=== PATIENT | male | born 1975 | race Caucasian/White ===

== ENCOUNTER 2019-09-23 17:31 | Outpatient (CLI) | payer SELFPAY ==
--- NOTE | ~2019-09-23 | XR_ITS ---
XR wrist RT min 3V 09/23/2019 17:49 Indication: Right wrist pain Procedure: 4 views right wrist Comparison: No prior studies for comparison. Findings: No fracture, subluxation or dislocation. There is mild osteoarthritis of the triscaphe join t. No significant soft tissue abnormality. No radiopaque foreign bodies. Impression: 1: Mild osteoarthritis of the triscaphe joint. Reviewed, dictated and finalized at location A. Impression: 1: Mild osteoarthritis of the triscaphe joint.
== END 2019-09-23 17:32 | disposition home or self-care (01) ==
PROVIDERS: PCP Family Medicine; Visit Provider Physician Assistant
DX: M19.031 Primary osteoarthritis, right wrist (principal)
CPT/HCPCS: 73110

== ENCOUNTER → 2019-10-16 07:41 | Outpatient (CLI) | payer SELFPAY ==
--- NOTE | ~2019-10-16 | MR_ITS ---
EXAMINATION: MR wrist RT wo con DATE: 10/16/2019 08:29 INDICATION: Right wrist pain. TECHNIQUE: Magnetic resonance imaging (MRI) of the wrist was performed without intravenous contrast. Sequences performed include coronal T1-weighted FSE, coronal PD-weighted FS FSE, axial PD-weighted FS FSE, axial PD-weighted FSE, sagittal PD-weighted FSE, and sagittal PD-weighted FS FSE. COMPARISON: Right wrist radiographs 09/23/2019 FINDINGS: Intrinsic ligaments: There is a complete tear of scapholunate ligament with widening of scapholunate joint. Lunotriquetral ligament is intact. Triangular fibrocartilage complex (TFCC): There is a full-thickness tear of triangular fibrocartilage. Extensor wrist: The bony groove for extensor carpi ulnaris tendon is shallow, and the tendon is anteromedially displa jenna indicating a tear of the tendon sheath. There is severe tendinopathy of extensor pollicis brevis and abductor pollicis longus tendons with partial tears. Flexor wrist: The flexor tendons are normal. Median nerve is normal. Guyon's canal: The ulnar nerve is normal. Bones/other: There is mild osteoarthritis of triscaphe joint and first carpometacarpal joint. There is edema in ab ductor pollicis brevis muscle, which may be contusion or mild strain (grade 1). IMPRESSION: 1. Complete tear of scapholunate ligament with scapholunate dissociation. 2. Full-thickness tear of triangular fibrocartilage. 3. Tear of the extensor carpi ulnaris tendon sheath with displacement of the tendon from its bony eduardo ove. 4. Severe tendinopathy of extensor pollicis brevis and abductor pollicis longus tendons with partial tears. 5. Mild osteoarthritis of triscaphe joint and first carpometacarpal joint. Reviewed, dictated and finalized at location A. IMPRESSION: 1. Complete tear of scapholunate ligament with scapholunate dissociation. 2. Full-thickness tear of triangular fibrocartilage. 3. Tear of the extensor carpi ulnaris tendon sheath with displacement of the te ndon from its bony groove. 4. Severe tendinopathy of extensor pollicis brevis and abductor pollicis longus tendons with partial tears. 5. Mild osteoarthritis of triscaphe joint and first carpometacarpal joint.
== END ==
PROVIDERS: Visit Provider Orthopaedic Surgery
DX: M19.031 Primary osteoarthritis, right wrist (principal); S63.591A Other specified sprain of right wrist, initial encounter; X58.XXXA Exposure to other specified factors, initial encounter
CPT/HCPCS: 73221

== ENCOUNTER → 2020-01-16 15:34 | Outpatient (CLI) | payer OTHER, SELFPAY ==
--- NOTE | ~2020-01-16 | XR_ITS ---
EXAMINATION: XR ankle RT min 3V DATE: 01/16/2020 16:33 INDICATION: Right leg pain TECHNIQUE: Anteroposterior, oblique, mortise, and lateral views of the right ankle were obtained. COMPARISON: None. FINDINGS: Alignment is normal. No fracture. Joint spaces are well maintained. No ankle joint effusion. Mild s oft tissue swelling with subcutaneous edema about the distal lower leg and over the lateral malleolus . IMPRESSION: 1. No acute osseous abnormality. Reviewed, dictated and finalized at location B.
--- NOTE | ~2020-01-16 | XR_ITS ---
XR lumbar spine 2-3V 01/16/2020 16:33 Indication: Low back pain Procedure: 3 views lumbar spine Comparison: 12/29/2008 Findings: There are wedge compression deformities T11, T12 and L1, chronic. No acute fracture or trau matic malalignment. There is disc narrowing at L4-5 and L5-S1. There is mild facet hypertrophy at L5- S1. No acute fracture, subluxation or dislocation. No evidence for spondylolisthesis. Impression: 1: Mild lumbar spondylosis. Reviewed, dictated and finalized at location A. Impression: 1: Mild lumbar spondylosis.
--- NOTE | ~2020-01-16 | XR_ITS ---
EXAMINATION: XR knee RT 3V DATE: 01/16/2020 16:33 INDICATION: Right knee pain. TECHNIQUE: 3 views of right knee were obtained. COMPARISON: Right knee radiographs 05/31/2016 FINDINGS: Bone alignment is normal. No fracture. There is mild tricompartmental osteoarthritis. There is a small right knee joint effusion. IMPRESSION: 1. Mild right knee osteoarthritis. 2. Small right knee joint effusion. Reviewed, dictated and finalized at location A.
--- NOTE | ~2020-01-16 | XR_ITS ---
EXAMINATION: XR hip RT min 2V DATE: 01/16/2020 16:32 INDICATION: Right hip pain. TECHNIQUE: 2 views of right hip were obtained. COMPARISON: None. FINDINGS: Bone alignment is normal. No fracture. There is mild right hip osteoarthritis. IMPRESSION: 1. Mild right hip osteoarthritis. Reviewed, dictated and finalized at location A.
== END ==
PROVIDERS: Visit Provider Physician Assistant
DX: M47.896 Other spondylosis, lumbar region (principal); M17.11 Unilateral primary osteoarthritis, right knee; M25.461 Effusion, right knee; M16.11 Unilateral primary osteoarthritis, right hip
CPT/HCPCS: 72100; 73502; 73562; 73610

== ENCOUNTER → 2020-06-03 12:18 | Outpatient (CLI) | payer OTHER, SELFPAY ==
--- NOTE | ~2020-06-03 | XR_ITS ---
EXAMINATION: XR ankle RT min 3V DATE: 06/03/2020 13:05 INDICATION: Right ankle pain TECHNIQUE: Anteroposterior, oblique, mortise, and lateral views of the right ankle were obtained. COMPARISON: 01/16/2020 FINDINGS: Alignment is normal. No fracture. Joint spaces are well maintained. No ankle joint effusion. The so ft tissues are unremarkable. IMPRESSION: 1. No acute osseous abnormality. Reviewed, dictated and finalized at location B.
== END ==
DX: M25.50 Pain in unspecified joint (principal)
CPT/HCPCS: 73610

== ENCOUNTER → 2020-08-08 08:15 | Outpatient (CLI) | payer OTHER, SELFPAY ==
[2020-08-08 19:55] LABS: SARS-CoV-2 RNA PCR Negative
== END ==
PROVIDERS: PCP Family Medicine; Visit Provider Internal Medicine Gastroenterology
DX: Z01.812 Encounter for preprocedural laboratory examination (principal); Z20.822 Contact with and (suspected) exposure to COVID-19
CPT/HCPCS: C9803; U0003; U0005

== ENCOUNTER 2020-08-11 02:29 | Day surgery (SDC) | payer OTHER, SELFPAY ==
[2020-08-04 13:33] VITALS: BMI 44.9
[2020-08-11 07:59] VITALS: BP 135/94; PULSE 88; RESP 22; TEMP 36.4; O2SAT 96
[2020-08-11] MEDS: LACTATED RINGERS 1,000 ML 150 ML IV CONT (08:16)
--- NOTE | 2020-08-11 08:25 | WPDANESEPPF ---
Anes - Initial Pre Proc Eval Procedure: Operation Date: 08/11/20 09:00 Proposed Procedures p Colonoscopy - Fredy Herrera MD Date/Time: 08/11/20 08:25 Surgeon: Fredy Herrera MD Pre Op Diagnosis: rectal bleed Patient Data Age: 45 Gender: M Height: 5 ft 11.5 in Weight: 143.1 kg Last Vital Signs Temp 97.5 F L 08/11/20 07:59 Pulse 88 08/11/20 07:59 Resp 22 H 08/11/20 07:59 BP 135/94 H 08/11/20 07:59 Pulse Ox 96 08/11/20 07:59 Allergies Allergy/AdvReac Type Severity Reaction Status Date / Time No Known Allergies Allergy Verified 08/11/20 07:58 Home Medications Medication Instructions Recorded Confirmed Type lisinopril 10 mg tablet 10 mg PO DAILY #90 tablet 05/08/20 08/04/20 Rx allopurinol 300 mg tablet 300 mg PO DAILY #90 tablet 06/08/20 08/04/20 Rx colchicine 0.6 mg tablet 0.6 mg PO DAILY #30 tablet 06/08/20 08/04/20 Rx indomethacin 25 mg capsule 25 mg PO TID #30 cap 06/22/20 08/04/20 Rx apremilast 30 mg tablet 30 mg PO BID 07/08/20 08/04/20 History meloxicam 15 mg tablet 15 mg PO DAILY #90 tablet 07/21/20 08/04/20 Rx Patient hx anesthesia problems: none Family hx anesthesia problems: none PMFSH Past Medical History Medical History BMI 40.0-44.9, adult Degenerative arthritis of knee, bilateral Gout, unspecified Surgical History Surgical History H/O knee surgery left knee scope Family History Family History Father Family history of cardiovascular disease Social History Social History Smoking status: Never smoker Alcohol intake: current Alcohol use details: occasional Substance use: never Substance use type: does not use Living arrangements: with friend(s) Additional living arrangements comments: lives with girlfriend Gender identity (if verbalized by the patient): Male Sexual Orientation (if Verbalized by the Patient): Straight or Heterosexual Spiritual care concerns: No Anes - Eval Final PreProcedure Day of Procedure 08/11/20 08:25 Patient weight: morbidly obese Heart: regular rate and rhythm Lungs: clear to auscultation Airway: Mallampati scale class III Neurological: alert and oriented Last oral intake: >/= 8 hours ASA classification: III Emergent: no Anesthetic plan: proceed Anesthesia type and monitoring: general GIVS and standard monitoring Informed Consent: The patient's anesthetic plan and its attendant risks and benefits were discussed with the patient/family/POA. Questions were solicited and answers provided to the satisfaction of the patient/family/POA.
--- NOTE | 2020-08-11 08:27 | WPDGICN ---
Assessment and Plan Assessment and plan (1) Rectal bleeding: Code(s): K62.5 - Hemorrhage of anus and rectum Status: Acute Assessment and Plan: Patient with long history of rectal bleeding that has intensified over recent weeks. This appears to be associated with hard stools. Plan is for FiberCon or Metamucil be taken on a daily basis. A colonoscopy will be performed to evaluate source of blood loss. Further recommendations regarding treatment hemorrhoids except for will be deferred till after endoscopy. GI Consult Note Consult date/time: 08/11/20 08:27 HPI: Laureano Eagle is a 45 year old male Presents for evaluation of rectal bleeding. Patient has had rectal bleeding off and on for several years. This been attributed to hemorrhoids. Over last several weeks has had increasing amount of bright red blood per rectum. States he always has hard stools. He is on weight loss supplement that includes fiber. This is failed to totally soften his stools. His family history is noncontributory patient denies any weight loss. Denies abdominal pain. Review of Systems Review of Systems: All systems reviewed & are unremarkable except as noted in HPI and below PMFSH Past Medical History Medical History BMI 40.0-44.9, adult Degenerative arthritis of knee, bilateral Gout, unspecified Surgical History Surgical History H/O knee surgery left knee scope Family History Family History Father Family history of cardiovascular disease Social History Social History Smoking status: Never smoker Alcohol intake: current Alcohol use details: occasional Substance use: never Substance use type: does not use Living arrangements: with friend(s) Additional living arrangements comments: lives with girlfriend Gender identity (if verbalized by the patient): Male Sexual Orientation (if Verbalized by the Patient): Straight or Heterosexual Spiritual care concerns: No Meds Home Medications and Allergies Home Medications Medication Instructions Recorded Confirmed Type lisinopril 10 mg tablet 10 mg PO DAILY #90 tablet 05/08/20 08/04/20 Rx allopurinol 300 mg tablet 300 mg PO DAILY #90 tablet 06/08/20 08/04/20 Rx colchicine 0.6 mg tablet 0.6 mg PO DAILY #30 tablet 06/08/20 08/04/20 Rx indomethacin 25 mg capsule 25 mg PO TID #30 cap 06/22/20 08/04/20 Rx apremilast 30 mg tablet 30 mg PO BID 07/08/20 08/04/20 History meloxicam 15 mg tablet 15 mg PO DAILY #90 tablet 07/21/20 08/04/20 Rx Allergies Allergy/AdvReac Type Severity Reaction Status Date / Time No Known Allergies Allergy Verified 08/11/20 07:58 Vital Signs Vital Signs - 24 hr 08/11/20 07:59 Temperature 97.5 F L Pulse Rate 88 Respiratory Rate 22 H Blood Pressure 135/94 H Pulse Oximetry 96 Exam Narrative: Exam Narrative: Physical exam reveals patient be alert. Vital signs stable. HEENT exam is unremarkable. Patient is anicteric. Lungs are clear to auscultation and percussion. Heart is without murmur or extra sounds. Abdominal exam bowel sounds are present soft nontender with no organomegaly. Digital external rectal exam is normal.
[2020-08-11 08:58] VITALS: BP 135/94; PULSE 88; RESP 22; O2SAT 96
[2020-08-11 09:08] VITALS: BP 128/78; PULSE 84; RESP 15; O2SAT 96
[2020-08-11 09:18] VITALS: BP 132/72; PULSE 85; RESP 16; O2SAT 96
== END 2020-08-11 09:30 | disposition home or self-care (01) ==
PROVIDERS: PCP Family Medicine; Visit Provider Internal Medicine Gastroenterology
PROC: 0DJD8ZZ Inspection of Lower Intestinal Tract, Via Natural or Artificial Opening Endoscopic (ICD-10-PCS; CPT 45378; principal; 2020-08-11 09:00)
DX: K62.5 Hemorrhage of anus and rectum (principal); D12.5 Benign neoplasm of sigmoid colon; K64.8 Other hemorrhoids; M17.0 Bilateral primary osteoarthritis of knee; M10.9 Gout, unspecified
CPT/HCPCS: 45385; 88305; C9803; J2001; J2704; J7120; U0003; U0005

== ENCOUNTER 2021-10-12 10:59 | Outpatient (CLI) | payer OTHER, SELFPAY ==
[2021-10-12 18:38] LABS: Basophils Absolute Auto 0.1 K/mm3 (0.0-0.1); Basophils Percent Auto 1.1 % (0.2-1.2); Eosinophils Absolute Auto 0.2 K/mm3 (0-0.3); Eosinophils Percent Auto 2.3 % (0-4.4); Hematocrit 42.8 % (42.0-52.0); Hemoglobin 14.2 g/dL (14.0-18.0); Immature Granulocyte Absolute 0.02 K/mm3 (0.00-0.031); Immature Granulocyte Percent A 0.3 % (0-0.5); Lymphocytes Absolute Auto 2.67 K/mm3 (0.9-3.2); Lymphocytes Percent Auto 41.2 % (18.3-44.2); Mean Corpuscular HGB Conc 33.2 g/dl (32-36); Mean Corpuscular Hemoglobin 30.1 pg (26-34); Mean Corpuscular Volume 90.9 fl (80-100); Mean Platelet Volume 12.8 fl (7.4-10.4); Monocytes Absolute Auto 0.5 K/mm3 (0.1-0.6); Monocytes Percent Auto 7.1 % (2.6-8.5); Neutrophils Absolute Auto 3.1 K/mm3 (1.3-6.7); Platelet Count Result 189 k/mm3 (150-375); Red Blood Count 4.71 M/mm3 (4.6-6.20); Red Cell Distribution Width 13.4 % (11.5-14.5); White Blood Count 6.5 K/mm3 (4.5-10.0)
[2021-10-12 18:55] LABS: Alanine Aminotransferase 74 U/L (6-50); Albumin Level 4.1 g/dL (3.5-5.1); Alkaline Phosphatase 57 U/L (38-126); Anion Gap 5 mmol/L (8-16); Aspartate Amino Transferase 48 U/L (17-59); Bilirubin,Total 0.9 mg/dL (0.2-1.3); Blood Urea Nitrogen 17 mg/dL (9-20); Carbon Dioxide 29 mmol/L (22-30); Chloride 106 mmol/L (98-107); Cholesterol 176 mg/dL (0-200); Estimated Glomerular Filt Rate 59; Glucose 115 mg/dL (65-110); HDL Direct 35 mg/dL; Potassium 4.5 mmol/L (3.4-5.0); Sodium 140 mmol/L (137-145); Triglycerides 123 mg/dL (<150); Uric Acid 6.3 mg/dL (3.5-8.5)
[2021-10-12 19:14] LABS: LDL Cholesterol Direct 104 mg/dL
[2021-10-12 19:22] LABS: Thyroid Stimulating Hormone 0.467 uIU/mL (0.465-4.680)
[2021-10-12 20:23] LABS: Hemoglobin A1C 5.3 % (<5.7)
== END 2021-10-12 11:00 | disposition home or self-care (01) ==
LOC: ANHGOSHLAB 11:00
PROVIDERS: PCP Family Medicine; Visit Provider Physician Assistant
DX: M10.9 Gout, unspecified (principal); I10 Essential (primary) hypertension; R73.03 Prediabetes; Z51.81 Encounter for therapeutic drug level monitoring; Z79.899 Other long term (current) drug therapy
CPT/HCPCS: 36415; 80053; 80061; 83036; 84443; 84550; 85025

== ENCOUNTER 2021-10-21 11:47 | Outpatient (CLI) | payer OTHER, SELFPAY ==
[2021-10-21 19:07] LABS: Basophils Absolute Auto 0.1 K/mm3 (0.0-0.1); Basophils Percent Auto 1.1 % (0.2-1.2); Eosinophils Absolute Auto 0.2 K/mm3 (0-0.3); Eosinophils Percent Auto 3.2 % (0-4.4); Hematocrit 42.7 % (42.0-52.0); Hemoglobin 14.7 g/dL (14.0-18.0); Immature Granulocyte Absolute 0.02 K/mm3 (0.00-0.031); Immature Granulocyte Percent A 0.3 % (0-0.5); Lymphocytes Absolute Auto 2.46 K/mm3 (0.9-3.2); Lymphocytes Percent Auto 37.3 % (18.3-44.2); Mean Corpuscular HGB Conc 34.4 g/dl (32-36); Mean Corpuscular Hemoglobin 30.8 pg (26-34); Mean Corpuscular Volume 89.5 fl (80-100); Mean Platelet Volume 12.6 fl (7.4-10.4); Monocytes Absolute Auto 0.4 K/mm3 (0.1-0.6); Monocytes Percent Auto 6.5 % (2.6-8.5); Neutrophils Absolute Auto 3.4 K/mm3 (1.3-6.7); Neutrophils Percent Auto 51.6 % (45.5-73.1); Platelet Count Result 202 k/mm3 (150-375); Red Blood Count 4.77 M/mm3 (4.6-6.20); Red Cell Distribution Width 12.9 % (11.5-14.5); White Blood Count 6.6 K/mm3 (4.5-10.0)
[2021-10-21 19:48] LABS: Hemoglobin A1C 5.3 % (<5.7)
[2021-10-21 20:09] LABS: Hepatitis B Surface Antigen Negative (Negative)
[2021-10-21 20:14] LABS: Alanine Aminotransferase 81 U/L (6-50); Albumin Level 4.1 g/dL (3.5-5.1); Alkaline Phosphatase 54 U/L (38-126); Anion Gap 7 mmol/L (8-16); Aspartate Amino Transferase 39 U/L (17-59); Bilirubin,Total 1.1 mg/dL (0.2-1.3); Blood Urea Nitrogen 16 mg/dL (9-20); Calcium 9.2 mg/dL (8.4-10.2); Carbon Dioxide 28 mmol/L (22-30); Chloride 103 mmol/L (98-107); Cholesterol 167 mg/dL (0-200); Estimated Glomerular Filt Rate 59; Glucose 98 mg/dL (65-110); HDL Direct 37 mg/dL; Potassium 4.4 mmol/L (3.4-5.0); Sodium 138 mmol/L (137-145); Triglycerides 124 mg/dL (<150); Uric Acid 6.7 mg/dL (3.5-8.5)
[2021-10-21 20:15] LABS: HAV RESULT Negative (Negative); Hepatitis B Core IgM Result Negative (Negative)
[2021-10-21 20:25] LABS: LDL Cholesterol Direct 106 mg/dL
[2021-10-21 20:26] LABS: Hepatitis C Virus Antibody Negative (Negative)
== END 2021-10-21 11:48 | disposition home or self-care (01) ==
LOC: ANHGOSHLAB 11:48
PROVIDERS: PCP Family Medicine; Visit Provider Family Medicine
DX: R73.03 Prediabetes (principal); M10.9 Gout, unspecified; I10 Essential (primary) hypertension; Z51.81 Encounter for therapeutic drug level monitoring; Z79.899 Other long term (current) drug therapy; R74.8 Abnormal levels of other serum enzymes
CPT/HCPCS: 36415; 80053; 80061; 80074; 83036; 84443; 84550; 85025

== ENCOUNTER → 2021-11-01 09:53 | Outpatient (CLI) | payer OTHER, SELFPAY ==
--- NOTE | ~2021-11-01 | US_ITS ---
US abdomen complete EXAMINATION: US Abdomen Complete INDICATION: Abnormal liver enzymes PROCEDURE: Realtime High Resolution abdomen ultrasound. COMPARISON: No prior studies for comparison FINDINGS: Gallbladder contains gallstones. No gallbladder wall thickening or pericholecystic fluid. Common bile duct measures 4 mm. Liver echotexture is increased, consistent with fatty infiltration.. Pancreas within normal limits. Pancreatic tail is obscured by bowel gas. Spleen is enlarged measuring 13.9 cm. Renal echotexture i s within normal limits bilaterally without hydronephrosis, contour deforming mass or renal stone. Rig ht kidney measures 10.3 cm. Left kidney measures 10.6 cm. Visualized aspects of the aorta and IVC are within normal limits. Portal vein is patent. No sonograph ic Jefferson's sign indicated by the technologist. IMPRESSION: 1: Cholelithiasis. 2: Hepatic steatosis. 3: Splenomegaly. Reviewed, dictated and finalized at location B.
== END ==
PROVIDERS: PCP Family Medicine; Visit Provider Physician Assistant
DX: R74.8 Abnormal levels of other serum enzymes (principal); K80.20 Calculus of gallbladder without cholecystitis without obstruction; K76.0 Fatty (change of) liver, not elsewhere classified; R16.1 Splenomegaly, not elsewhere classified
CPT/HCPCS: 76700

== ENCOUNTER → 2024-03-18 06:52 | Outpatient (CLI) | payer OTHER, SELFPAY ==
--- NOTE | 2024-04-08 16:13 | WPDSLEEPSTUD ---
Sleep Study Date of Study: 03/18/24 Ordering Provider: Javier Lepe MD Interpreting Physician: Lyndsay Maria MD Sleep Study Type: Polysomnogram Height: 1.8 m Weight: 151.046 kg Body Mass Index: 46.4 Neck Circumference (inches): 19.5 [place]: 6 Reason for Sleep Study Known obstructive sleep apnea, * 03/07/2018 split night study; severe EDWAR, AHI 101.4, heavy snoring, O2 meena 77%, treated with BiPAP He was set up with BiPAP on May 14, 2018. Sleep History Laureano Eagle is a 48 year-old man with obstructive sleep apnea diagnosed in 2018, pressure was BiPAP . This pressure is no longer feeling effective for him. He returns now for a split night study. Was not able to qualify for a CPAP study full night because he has not been compliant enough or if he has, we were not able to document his compliance to have a full night titration. This study was conducted as a split night study. He wakes up 3 or 4 times during the night. After some awakenings he cannot return to sleep. Five years ago he occasionally awaken from sleep feeling short of breath but using PAP he does not awaken feeling short of breath. He does not awaken at night with heartburn, belching or coughing. He never snores at night and never awakens others by snoring. He occasionally has difficulty sleeping with a cold. He occasionally wakes up gasping for breath at night. He rarely has breathing problems at night observed by others. He occasionally sweats excessively at night. He does not notice his heart pounding or beating irregularly at night. He rarely falls asleep during the day, never involuntarily, never while driving. He does not have loss of muscle tone with strong emotion. He does not have daytime difficulties due to excessive sleepiness. Does not feel paralyzed on waking or falling asleep. He occasionally has vivid dreamlike scenes upon awakening or falling asleep. He does not feel afraid to go to sleep. He rarely has nightmares. Frequently remembers his dreams. He occasionally has racing thoughts. He does not have sadness or depression, rarely has anxiety. He occasionally notices parts of his body jerking. He does not kick at night, does not have crawling or aching feelings in his legs, does not have any kind of leg pain at night or does he have morning jaw pain. He rarely grinds his teeth at night. He does not have pain bothering him in the day. He is not awakened by pain at night. He occasionally wakes up feeling stiff in the morning. He does not wake up with sore achy muscles. He rarely wakes up with pain in the neck and spine. He has headaches and memory problems. Normal bedtime is 12 midnight, falling asleep within 20 minutes but sometimes taking up to an hour. He typically awakens 3-4 times during the night, checks his telephone, returns to sleep within 20 minutes. His normal wake time is 7:00 a.m.. On weekends, bedtime is still midnight but his wake time is 10:00 a.m.. He estimates getting between 6 and 8 hours of sleep at night. He does not generally take naps in the afternoon or evening. A short nap is not refreshing. He is usually drowsy for 1 hour after waking. Feels better in the evening compared to other times of day. Habits: Tobacco: Never smoker Caffeine: None Alcohol: not daily; about twice a month he has a shot of [employer] Recreational substances: None PMFSH Past Medical History Medical History (Updated 04/08/24 @ 18:42 by Lyndsay Maria MD) Psoriasis Psoriatic arthritis Essential (primary) hypertension Obstructive sleep apnea Right knee pain Degenerative arthritis of knee, bilateral BMI 40.0-44.9, adult Gout, unspecified Surgical History Surgical History H/O knee surgery left knee scope Family History Family History Father Family history of cardiovascular disease Social History Social History Smoking status: Never smoker Alcohol intake: current Alcohol use details: occasional Substance use: never Substance use type: does not use Lack of Transportation: No Lack of Food: Never True Current Housing: I Have Housing Concerned About Future Housing: No Difficulty Paying Gas/Electric Bills: No Difficulty Paying for Meds: YES Currently Unemployed: YES Education: High School Diploma/GED Difficulty w/ Childcare or Family Care: No Living arrangements: with friend(s) Additional living arrangements comments: lives with girlfriend Gender identity (if verbalized by the patient): Male Sexual Orientation (if Verbalized by the Patient): Straight or Heterosexual Spiritual care concerns: No Medications Home Medications ?Medication ?Instructions ?Recorded ?Confirmed ?Type clobetasol 0.05 % topical ointment topical 06/07/23 12/18/23 History apremilast 20 mg tablet (Otezla) mg PO 12/18/23 12/18/23 History tirzepatide 2.5 mg/0.5 mL 2.5 mg (0.5 mL) subcut WEEKLY #6 mL 12/18/23 12/18/23 Rx subcutaneous pen injector (Mounjaro) allopurinol 300 mg tablet See Rx Instructions .Route 01/15/24 Rx .COMPLEX #90 tabs meloxicam 15 mg tablet 15 mg PO DAILY #90 tabs 01/15/24 Rx lisinopril 10 mg tablet See Rx Instructions .Route 03/18/24 Rx .COMPLEX #90 tabs Sleep Procedure A full night polysomnogram using the magnetic[employer]io multi-channel system recorded the standard physiologic parameters including EEG, EOG, submentalis EMG, anterior tibialis EMG, EKG, body position, nasal and oral airflow using nasal pressure sensor and thermistor. Respiratory parameters of chest and abdominal movements were recorded with Respiratory Inductance Plethysmography belts. Oxygen saturation was recorded by pulse oximetry. Video monitoring was also performed. Sleep stages, periodic limb movements, and EEG arousals were scored in 30 second epochs according to the criteria of the AASM Scoring Manual. The Apnea-Hypopnea Index was calculated using CMS guidelines for definition of hypopnea while scoring respiratory events. This was ordered as a split night study however he did not meet the criteria early enough in the night, after the 1st 2 hours of accumulated sleep so this was conducted as a full night basic nocturnal polysomnogram. Sleep Architecture The total recording time was 355.8 minutes. The total sleep time was 136.5 minutes. Sleep latency was 35.0 minutes. REM latency was - minutes. Sleep efficiency was 38.4%. The patient had 57 awakenings for an awakening index of 25.1. Wake after sleep onset time was 184.5 minutes. The patient spent 82.5 minutes, 60.4% of total sleep time in Stage N1. The patient spent 54.0 minutes, 39.6% in Stage N2. The patient spent no time in Stage N3 or Stage REM sleep. His sleep was fracures, several long episodes of wake during the night, frequent shifts between wake, Stage N1 and Stage N2, with no deep sleep or Stage REM. Respiratory Analysis The patient had 21 hypopneas, 175 obstructive apneas, no mixed apneas and 2 central apneas for an overall Apnea Hypopnea Index of 86.6. The REM Apnea Hypopnea Index was 0 because he had no REM. The NREM Apnea Hypopnea Index was 86.6. The patient had a Central Apnea Hypopnea Index of 0.9. There were no Respiratory Effort Related Arousals. The Respiratory Disturbance Index is 90.1 events per hour. There was no evidence of Alireza-Tinsley Respirations. Arousals There were 226 total arousals for an arousal index of 99.3. There were 89 spontaneous arousals for an index of 39.1. There were 134 arousals due to respiratory events for an index of 58.9. There were no arousals due to periodic limb movements. There were 3 arousals due to isolated limb movements for an index of 1.3. Periodic Limb Movements The patient had 3 isolated limb movements with an index of 1.3. The patient had no periodic limb movements. Patient had a total of 3 limb movements with a total limb movement index of 1.3. Oximetry Data The patient had an average oxygen saturation of 94.3% in sleep with a minimum oxygen saturation of 85% and a maximum oxygen saturation of 100%. The patient had 58 oxygen desaturations that were 4% or greater resulting in an Oxygen Desaturation Index of 25.5. The patient spent 6.2 minutes, 1.8% of total sleep time with an oxygen saturation below 88%. Snoring Profile Snoring was moderate throughout the night. Cardiac Profile EKG showed normal sinus rhythm with an average pulse rate of 69.8 beats per minute, minimum pulse rate 50 a maximum pulse rate 95 beats per minute. No arrhythmias. EEG Profile Unremarkable, no evidence of seizures. Assessment and Plan Assessment and Plan (1) Obstructive sleep apnea: Code(s): G47.33 - Obstructive sleep apnea (adult) (pediatric) Status: Acute Assessment and Plan: This full night basic nocturnal polysomnogram on 03/18/2024 shows extremely severe obstructive sleep apnea, the apnea-hypopnea index is 86.6 with moderate snoring and desaturation 85%. The patient had limited sleep, the sleep efficiency was extremely low 38.4% indicating that most of the night was spent awake. He did not meet criteria early enough in the night to start the titration of PAP therapy. For this reason the patient absolutely needs return to the sleep lab for PAP titration. He was previously on BiPAP in 2018. He is not a candidate for auto PAP. The patient had multiple episodes of waking throughout the night and spent only about 38% of the night of sleep. This suggests that he naps on the day of the study. It is essential for the patient to not nap on the day of the CPAP titration. Even with a sleep aid, he will not be able to have a full night appropriate titration if he comes to the sleep lab without 12 hours of wakefulness preceding the testing. I recommend that he is prescribed an effective sleep aid to get to sleep and stay asleep during the titration. Ideally, we akiko ask him not to use his regular PAP machine for 2-3 nights prior to testing in order to identify the optimal pressure. If he uses PAP leading up to the titration, he may end up with an under-titration. He will be able to start his titration with a pressure of CPAP 10 cm as he is on high pressures at home. When he presents for the CPAP / BiPAP titration, he should not nap on the day of the study, he should have a sleep aid such as solpidem 5 mg to 10 mg or Lunesta 2 mg to 3 mg available to take when lights are turned out, not at home. BMI is 46. Weight management is advised. Clinical data suggests that weight loss of 10% can reduce the severity of respiratory events and snoring and improve AHI by as much as 25%. Data The data obtained during this sleep study is adequate for interpretation. Certification This sleep study has been reviewed by a board certified sleep medicine physician.
[2024-04-08 16:16] VITALS: BMI 46.4
== END ==
LOC: ANHCSM 04-12 06:52
PROVIDERS: PCP Family Medicine; Visit Provider Family Medicine
DX: G47.33 Obstructive sleep apnea (adult) (pediatric) (principal); Z99.89 Dependence on other enabling machines and devices
CPT/HCPCS: 95810

== ENCOUNTER 2024-08-28 10:12 | Outpatient (CLI) | payer OTHER, SELFPAY ==
[2024-09-23 16:03] VITALS: BMI 42.7
--- NOTE | 2024-09-23 16:03 | P.SLEEP_ITS ---
Sleep Study Date of Study: 08/28/24 Ordering Provider: Javier Lepe MD Interpreting Physician: Mary Lou Woods DO Sleep Study Type: CPAP Titration Height: 1.83 m Weight: 142.882 kg Body Mass Index: 42.7 Neck Circumference (inches): 19.25 [place]: 6 Reason for Sleep Study Polysomnogram on 03/18/2024 showed an AHI of 86.6 with desaturation down to 85%. Sleep History Laureano Eagle is a 49 year-old man with obstructive sleep apnea diagnosed in 2018, pressure was BiPAP . This pressure is no longer feeling effective for him. He returns now for a split night study. Was not able to qualify for a CPAP study full night because he has not been compliant enough or if he has, we were not able to document his compliance to have a full night titration. This study was conducted as a split night study. He wakes up 3 or 4 times during the night. After some awakenings he cannot return to sleep. Five years ago he occasionally awaken from sleep feeling short of breath but using PAP he does not awaken feeling short of breath. He does not awaken at night with heartburn, belching or coughing. He never snores at night and never awakens others by snoring. He occasionally has difficulty sleeping with a cold. He occasionally wakes up gasping for breath at night. He rarely has breathing problems at night observed by others. He occasionally sweats excessively at night. He does not notice his heart pounding or beating irregularly at night. He rarely falls asleep during the day, never involuntarily, never while driving. He does not have loss of muscle tone with strong emotion. He does not have daytime difficulties due to excessive sleepiness. Does not feel paralyzed on waking or falling asleep. He occasionally has vivid dreamlike scenes upon awakening or falling asleep. He does not feel afraid to go to sleep. He rarely has nightmares. Frequently remembers his dreams. He occasionally has racing thoughts. He does not have sadness or depression, rarely has anxiety. He occasionally notices parts of his body jerking. He does not kick at night, does not have crawling or aching feelings in his legs, does not have any kind of leg pain at night or does he have morning jaw pain. He rarely grinds his teeth at night. He does not have pain bothering him in the day. He is not awakened by pain at night. He occasionally wakes up feeling stiff in the morning. He does not wake up with sore achy muscles. He rarely wakes up with pain in the neck and spine. He has headaches and memory problems. Normal bedtime is 12 midnight, falling asleep within 20 minutes but sometimes t aking up to an hour. He typically awakens 3-4 times during the night, checks his telephone, returns to sleep within 20 minutes. His normal wake time is 7:00 a.m.. On weekends, bedtime is still midnight but his wake time is 10:00 a.m.. He estimates getting between 6 and 8 hours of sleep at night. He does not generally take naps in the afternoon or evening. A short nap is not refreshing. He is usually drowsy for 1 hour after waking. Feels better in the evening compared to other times of day. Habits: Tobacco: Never smoker Caffeine: None Alcohol: not daily; about twice a month he has a shot of [employer] Recreational substances: None PMFSH Past Medical History Medical History Psoriasis Psoriatic arthritis Essential (primary) hypertension Obstructive sleep apnea Right knee pain Degenerative arthritis of knee, bilateral BMI 40.0-44.9, adult Gout, unspecified Surgical History Surgical History H/O knee surgery left knee scope Family History Family History Father Family history of cardiovascular disease Social History Social History Smoking status: Never smoker Alcohol intake: current Alcohol use details: occasional Substance use: never Substance use type: does not use Lack of Transportation: No Lack of Food: Never True Current Housing: I Have Housing Concerned About Future Housing: No Difficulty Paying Gas/Electric Bills: No Difficulty Paying for Meds: YES Currently Unemployed: YES Education: High School Diploma/GED Difficulty w/ Childcare or Family Care: No Living arrangements: with friend(s) Additional living arrangements comments: lives with girlfriend Gender identity (if verbalized by the patient): Male Sexual Orientation (if Verbalized by the Patient): Straight or Heterosexual Spiritual care concerns: No Medications Home Medications ?Medication ?Instructions ?Recorded ?Confirmed ?Type clobetasol 0.05 % topical ointment topical 06/07/23 06/24/24 History lisinopril 10 mg tablet See Rx Instructions .Route 03/18/24 06/24/24 Rx .COMPLEX #90 tabs zolpidem 10 mg tablet 10 mg PO QHS PRN sleep study #1 04/10/24 06/24/24 Rx tablet tirzepatide (weight loss) 5 mg/0.5 5 mg (0.5 mL) subcut WEEKLY #6 mL 06/24/24 06/24/24 Rx mL subcutaneous pen injector (Zepbound) allopurinol 300 mg tablet See Rx Instructions .Route 07/22/24 Rx .COMPLEX #90 tabs meloxicam 15 mg tablet 15 mg PO DAILY #90 tabs 07/22/24 Rx Sleep Procedure A full night CPAP Titration using the [employer] multi-channel system recorded the standard physiologic parameters including EEG, EOG, submentalis EMG, anterior tibialis EMG, EKG, body position, nasal and oral airflow using nasal pressure sensor and thermistor.? Respiratory parameters of chest and abdominal movements were recorded with Respiratory Inductance Plethysmography belts. Oxygen saturation was recorded by pulse oximetry. Video monitoring was also performed. Sleep stages, periodic limb movements, and EEG arousals were scored in 30 second epochs according to the criteria of the AASM Scoring Manual. The Apnea-Hypopnea Index was calculated using CMS guidelines for definition of hypopnea with 4% O2 desaturations while scoring respiratory events. Sleep Architecture The total recording time was 525.9 minutes.? The total sleep time was 470.0 minutes. Sleep latency was 7.1 minutes. REM latency was 124.0 minutes. Sleep efficiency was 89.4%. The patient had 43 awakenings for an awakening index of 5.5. Wake after Sleep Onset time was 48.5 minutes. The patient spent 50.5 minutes, 10.7% of total sleep time in Stage N1. The patient spent 339.5 minutes, 72.2% in Stage N2. The patient spent 0.0 minutes, 0.0% in Stage N3. The patient spent 80.0 minutes, 17.0% in Stage REM. Respiratory Analysis The patient had 71 hypopneas for an overall Apnea Hypopnea Index of 9.1 events per hour. The REM Apnea Hypopnea Index was 0. The NREM Apnea Hypopnea Index was 10.9. The patient had a Central Apnea Hypopnea Index of 0. There was no evidence of Alireza-Tinsley Respirations. The patient was started on CPAP 5 cm H2O and titrated to CPAP 15 cm H2O due to hypopneas. The patient was able to fall asleep starting on CPAP 5 cm H2O. The paul duncan was able to achieve REM sleep starting on CPAP 11 cm H2O. The patient had a residual AHI less than 5 with both NREM and REM sleep in the supine position on the final two pressure settings. On CPAP 13 cm H2O, the patient spent 253 minutes in NREM and 51.5 minutes in REM sleep with 1 hypopnea, resulting in an AHI of 0.2. On CPAP 15 cm H2O, the patient spent 17 minutes in NREM and 19.5 minutes in REM sleep with no respiratory events, resulting in an AHI of 0. The patient had a sleep efficiency of 93.3% on 13 cm H2O and 76.8% on 15 cm H2O. Arousals There were 141 total arousals for an arousal index of 18.0. There were 80 spontaneous arousals for an index of 10.2. ?There were 39 arousals due to respiratory events for an index of 5.0. There were 11 arousals due to periodic limb movements for an index of 1.4.? There were 12 arousals due to isolated limb movements for an index of 1.5. Periodic Limb Movements The patient had 41 isolated limb movements with an index of 5.2. The patient had 145 periodic limb movements with index of 18.5, which is elevated (normal < 15). Patient had a total of 186 limb movements with a total limb movement index of 23.7. Oximetry Data The patient had an average oxygen saturation of 94.0% in sleep with a minimum oxygen saturation of 83.0% and a maximum oxygen saturation of 98.0%. The patient had 76 oxygen desaturations that were 4% or greater resulting in an Oxygen Desaturation Index of 9.7.? The patient spent 2.8 minutes, 0.5% of total sleep time with an oxygen saturation below 88%. Snoring Profile Mild snoring was present intermittently in the beginning of the study. The snoring resolved once the patient was titrated to 13 cm H2O. Cardiac Profile The EKG showed normal sinus rhythm. No arrhythmias or premature beats were seen. The patient had an average pulse rate of 64.8 bpm with a minimum pulse rate of 49.0 bpm and a maximum pulse rate of 90.0 bpm. ? EEG Profile No signs of seizure activity seen. Assessment and Plan Assessment and Plan (1) Obstructive sleep apnea: Code(s): G47.33 - Obstructive sleep apnea (adult) (pediatric) Status: Acute Assessment and Plan: The patient was started on CPAP 5 cm H2O and titrated to CPAP 15 cm H2O due to hypopneas. We were able to find a pressure setting that resolved his sleep apnea. I recommend that the patient be prescribed CPAP 13 cm H2O, size large Resmed N30i AirTouch mask, CPAP filters/tubing and heated humidity. This should be used with all episodes of sleep.? Compliance should be reviewed within 31-90 days of starting therapy for usage greater than 4 hours per night greater than 70% of the nights. The patient should be asked about symptoms such as?excessive daytime sleepiness, quality of sleep, decreased nocturia, increased?mental functioning such as memory, mood, and concentration. While the patient had an excessive amount of periodic limb movements, the frequency drastically decreased once he was titrated to the optimal pressure setting. I recommend asking the patient about periodic limb movements at his first CPAP compliance visit. Data The data obtained during this sleep study is adequate for interpretation. Certification This sleep study has been reviewed by a board certified sleep medicine physician.
== END 2024-08-29 06:27 | disposition home or self-care (01) ==
LOC: ANHCSM 10:16
PROVIDERS: PCP Family Medicine; Visit Provider Family Medicine
DX: G47.33 Obstructive sleep apnea (adult) (pediatric) (principal)
CPT/HCPCS: 95811

== ENCOUNTER 2024-12-01 21:36 | Emergency (ER) | payer OTHER, SELFPAY ==
--- OUTSIDE RECORDS SUMMARY | 2021-12-15 04:22 | XMS_ITS | Continuity of Care Document ---
Author Organization [employer] Address [address] [facility] [address] [place] [id number] Phone Care Team Providers Care Evp General Counsel Name Role Phone Mervin Martin Unavailable Unavailable Procedures Procedure Date Wrist Widget Orthotic Mgmt and Training Therapeutic Activities Progress Note Therapeutic Activities Therapeutic Exercise Manual Therapy Hot or Cold Pack Therapeutic Activities Hot or Cold Pack Manual Therapy Therapeutic Exercise Manual Therapy Therapeutic Exercise Therapeutic Activities Hot or Cold Pack Therapeutic Activities Manual Therapy Therapeutic Activities Therapeutic Exercise Manual Therapy Hot or Cold Pack Therapeutic Activities Hot or Cold Pack Manual Therapy Therapeutic Exercise Therapeutic Activities Neuromuscular Re-Ed Manual Therapy Hot or Cold Pack Hot or Cold Pack Manual Therapy Neuromuscular Re-Ed Therapeutic Activities Manual Therapy Therapeutic Exercise Neuromuscular Re-Ed Hot or Cold Pack Ultrasound Therapeutic Activities Hot or Cold Pack Manual Therapy Therapeutic Exercise Neuromuscular Re-Ed Ultrasound Therapeutic Activities Neuromuscular Re-Ed Therapeutic Exercise Manual Therapy Hot or Cold Pack Therapeutic Activities Neuromuscular Re-Ed Therapeutic Exercise Manual Therapy Hot or Cold Pack Ultrasound Neuromuscular Re-Ed Therapeutic Activities Hot or Cold Pack Manual Therapy Therapeutic Exercise Electrical Stimulation Manual Therapy Therapeutic Exercise Neuromuscular Re-Ed Therapeutic Activities Hot or Cold Pack Electrical Stimulation Therapeutic Activities Neuromuscular Re-Ed Therapeutic Exercise Manual Therapy Hot or Cold Pack Electrical Stimulation Therapeutic Activities Neuromuscular Re-Ed Therapeutic Exercise Manual Therapy Hot or Cold Pack Therapeutic Activities Neuromuscular Re-Ed Therapeutic Exercise Hot or Cold Pack Manual Therapy Electrical Stimulation Therapeutic Activities Ultrasound Hot or Cold Pack Manual Therapy Neuromuscular Re-Ed Neuromuscular Re-Ed Therapeutic Exercise Manual Therapy Hot or Cold Pack Ultrasound OT Evaluation Low Complexity Therapeutic Exercise Manual Therapy Hot or Cold Pack Neuromuscular Re-Ed Therapeutic Activities Hot or Cold Pack Manual Therapy Therapeutic Exercise Therapeutic Activities Neuromuscular Re-Ed Hot or Cold Pack Manual Therapy Therapeutic Activities Neuromuscular Re-Ed Therapeutic Exercise Manual Therapy Hot or Cold Pack Progress Note Therapeutic Activities Therapeutic Exercise Manual Therapy Hot or Cold Pack Therapeutic Activities Neuromuscular Re-Ed Therapeutic Exercise Hot or Cold Pack Manual Therapy Progress Note Neuromuscular Re-Ed Therapeutic Activities Hot or Cold Pack Manual Therapy Therapeutic Exercise Therapeutic Exercise Neuromuscular Re-Ed Therapeutic Activities Electrical Stimulation Hot or Cold Pack Manual Therapy Hot or Cold Pack Manual Therapy Therapeutic Exercise Neuromuscular Re-Ed Therapeutic Activities Therapeutic Activities Hot or Cold Pack Manual Therapy Therapeutic Exercise Neuromuscular Re-Ed Therapeutic Activities Neuromuscular Re-Ed Therapeutic Exercise Manual Therapy Hot or Cold Pack Electrical Stimulation Therapeutic Activities Neuromuscular Re-Ed Hot or Cold Pack Manual Therapy Therapeutic Exercise Manual Therapy Therapeutic Exercise Therapeutic Activities Electrical Stimulation Hot or Cold Pack Hot or Cold Pack Manual Therapy Therapeutic Exercise Therapeutic Activities Neuromuscular Re-Ed Therapeutic Activities Progress Note Hot or Cold Pack Therapeutic Exercise Therapeutic Activities Hot or Cold Pack Therapeutic Exercise Neuromuscular Re-Ed Therapeutic Activities Electrical Stimulation Hot or Cold Pack Therapeutic Exercise Neuromuscular Re-Ed Therapeutic Activities Electrical Stimulation Hot or Cold Pack Manual Therapy Therapeutic Exercise Neuromuscular Re-Ed Therapeutic Activities Manual Therapy Therapeutic Exercise Neuromuscular Re-Ed Hot or Cold Pack Electrical Stimulation Therapeutic Activities Electrical Stimulation Hot or Cold Pack Manual Therapy Therapeutic Exercise Neuromuscular Re-Ed Therapeutic Activities Neuromuscular Re-Ed Therapeutic Exercise Manual Therapy Hot or Cold Pack Electrical Stimulation Hot or Cold Pack Therapeutic Exercise Neuromuscular Re-Ed Therapeutic Activities Therapeutic Activities Neuromuscular Re-Ed Hot or Cold Pack Manual Therapy Therapeutic Exercise Therapeutic Activities Neuromuscular Re-Ed Therapeutic Exercise Manual Therapy Hot or Cold Pack Electrical Stimulation Hot or Cold Pack Manual Therapy Therapeutic Exercise Neuromuscular Re-Ed Therapeutic Activities Therapeutic Activities Hot or Cold Pack Manual Therapy Therapeutic Exercise Neuromuscular Re-Ed Therapeutic Activities Manual Therapy Therapeutic Exercise Neuromuscular Re-Ed Electrical Stimulation Hot or Cold Pack Therapeutic Activities Hot or Cold Pack Manual Therapy Therapeutic Exercise Neuromuscular Re-Ed Therapeutic Activities Neuromuscular Re-Ed Therapeutic Exercise Manual Therapy Hot or Cold Pack Electrical Stimulation Manual Therapy Therapeutic Exercise Neuromuscular Re-Ed Therapeutic Activities Electrical Stimulation Hot or Cold Pack Therapeutic Activities Neuromuscular Re-Ed Therapeutic Exercise Hot or Cold Pack PT Evaluation Low Complexity Therapeutic Exercise Neuromuscular Re-Ed Hot or Cold Pack Manual Therapy Therapeutic Exercise Neuromuscular Re-Ed Therapeutic Activities Manual Therapy Therapeutic Exercise Neuromuscular Re-Ed Therapeutic Activities Manual Therapy Therapeutic Exercise Therapeutic Activities Therapeutic Activities Neuromuscular Re-Ed Manual Therapy Therapeutic Exercise Therapeutic Activities Neuromuscular Re-Ed Therapeutic Exercise Therapeutic Exercise Therapeutic Activities OT Evaluation Low Complexity Advance Directives Directive Yes / No Effective Date File Name No Information Encounters Encounter Description Practice Location Reason(s) For Visit Diagnoses Date Provider Providers Copied on Encounter [facility], [place], [place], [id number], tel:[phone] [place] No Information 2 Patricio Jeffries. . [facility], [place], [place], [id number], tel:[phone] [facility] No Information 2 Marcelina Barreto . . Referring Provider: Rinku Rome[address], [place], [address]. tel:[phone] [facility] [address], [place], [place], [id number], tel:[phone] [place] No Information 2 Patricio Jeffries. . Referring Provider: Rinku Romeo [address], [place], [address]. tel:[phone] [facility] [address], [place], [place], [id number], [place] tel:[phone] [place] No Information 2 Patricio Jeffries. . Referring Provider: Rinku Romeo [address], [place], [address]. tel:[phone] [facility], [place], [place], [id number], [place] tel:[phone] [place] No Information 2 2 Patricio Mervin. . Referring Provider: Danette Jennings [address], [place], [address]. tel:[phone] [facility] [address], [place], [place], [address], tel:[phone] [place] No Information 0 2 Patricio Mervin. . Referring Provider: Danette Jennings [address], [place], [address]. tel:[phone], [place], [place], [id number], tel:[phone] [place] No Information 2 Patricio Mervin. . Referring Provider: Danette Jennings [address], [place], [address]. tel:[phone] [facility] [address], [place], [place], [address], [place] tel:[phone] [place] No Information 2 Patricio Mervin. . Referring Provider: Danette Jennings [address], [place], [address]. tel:[phone] [facility] [address], [place], [place], [id number], [place] tel:[phone] [place] No Information 0 2 Patricio Mervin. . Referring Provider: Danette Jennings [address], [place], [address]. tel:[phone] [facility] [address], [place], [place], [id number], tel:[phone] [place] No Information 2 Patricio Mervin. . Referring Provider: Danette Jennings, [address], [place], [address]. tel:[phone] [facility], [address], [place], [place], [id number], [place] tel:[phone] [place] No Information 2 Patricio Mervin. . Referring Provider: Danette Jennings, [address], [place], [address]. tel:[phone] [facility], [address], [place], [place], [address], [place] tel:[phone] [place] No Information 2 Patricio Mervin. . Referring Provider: Danette Jennings [address], [place], [address]. tel:[phone] [facility], [address], [place], [place], [id number], [place] tel:[phone] [place] No Information 2 Patricio Mervin. . Referring Provider: Danette Jennings [address], [place], [address]. tel:[phone] [facility], [address], [place], [place], [address], [place] tel:[phone] [place] No Information 2 Patricio Mervin. . Referring Provider: Danette Jennings [address], [place], [address]. tel:[phone] [facility], [address], [place], [place], [address], [place] tel:[phone] [place] No Information 2 Patricio Mervin. . Referring Provider: Danette Jennings [address], [place], [address]. tel:[phone] [facility], [place], [place], [address], [place] tel:[phone] [place] No Information Apr-0 6-202 2 Patricio Mervin. . Referring Provider: Danette Jennings [address], [place], [address]. tel:[phone] [facility], [address], [place], [place], [address], [place] tel:[phone] [place] No Information Apr-0 4-202 2 Patricio Mervin. . Referring Provider: Danette Jennings [address], [place], [address]. tel:[phone] [facility] [address], [place], [place], [address], [place] tel:[phone] [place] No Information Mar-3 0-202 2 Patricio Mervin. . Referring Provider: Danette Jennings [address], [place], [address]. tel:[phone] [facility], [address], [place], [id number], [place] tel:[phone] [place] No Information Mar-2 8-202 2 Patricio Mervin. . Referring Provider: Danette Jennings [address], [place], [address]. tel:[phone] [facility] [address], [place], [place], [address], [place] tel:[phone] [place] No Information Mar-2 3-202 2 Patricio Mervin. . Referring Provider: Danette Jennings [address], [place], [address]. tel:[phone] [facility], [address], [place], [place], [address], [place] tel:[phone] [place] No Information Mar-2 1-202 2 Patricio Mervin. . Referring Provider: Danette Jennings, [address], [place], [address]. tel:[phone] [facility], [address], [place], [place], [address], [place] tel:[phone] [place] No Information 2 Patricio Mervin. . Referring Provider: Danette Jennings, [address], [place], [address]. tel:[phone] [facility], [address], [place], [place], [address], [place] tel:[phone] [place] No Information 1 Patricio Mervin. . Referring Provider: Vishnu Stoll, [address], [place], [address]. tel:[phone] [place] [address] [address], [place], [place], [address], [place] tel:[phone] [place] No Information 1 Patricio Mervin. . Referring Provider: Lay Blankenship[address], [place], [address]. tel:[phone] [place] [address] [address], [place], [place], [address], tel:[phone] [place] No Information 1 Patricio Mervin. . Referring Provider: Lay Blankenship[address], [place], [address]. tel:[phone] [place] [address] [address], [place], [place], [address], [place] tel:[phone] [place] No Information 1 Patricio Mervin. . Referring Provider: Lay Blankenship[address], [place], [address]. tel:[phone] [place] [address] [address], [place], [place], [address], [place] tel:[phone] [place] No Information 0 1 Patricio Burnhamyne. . Referring Provider: Vishnu Stoll, Anthony [facility] [address]B/[address]A, [place], [address]. tel:[phone] [place] [address], [address], [place], [place], [address], [place] tel:[phone] [place] No Information Aug-2 1 Patricio Burnhamyne. . Referring Provider: Vishnu Stoll, Anthony [facility] [address]B/[address]A, [place], [address]. tel:[phone] [place] [address], [address], [place], [place], [address], tel:[phone] [place] No Information 1 Patricio Burnhamyne. . Referring Provider: Vishnu Stoll, Anthony [facility] [address]/6B/12, [place], [address]. tel:[phone] [place] [address], [address], [place], [address], [place] tel:[phone] [place] No Information 1 1 Patricio Burnhamyne. . Referring Provider: Vishnu Stoll, Anthony [facility] [address]B/12A, [place], [address]. tel:[phone] [place] [address], [address], [place], [place], [address], [place] tel:[phone] [place] No Information 0 1 Patricio Burnhamyne. . Referring Provider: Vishnu Stoll, Anthony [facility] [address]B/[address]A, [place], [address]. tel:[phone] [place] [address], [address], [place], [place], [address], [place] tel:[phone] [place] No Information 0 1 Patricio Burnhamyne. . Referring Provider: Vishnu Stoll, [address], [place], [address]. tel:[phone] [place] [address], [address] [place], [place] [address]uite [facility], [place], [place], [id number], tel:[phone] [place] No Information 1 Patricio Burnhamyne. . Referring Provider: Vishnu Stoll, [address], [place], [address]. tel:[phone] [place] [address], [address] [place], [place] [address], [place], [address], tel:[phone] [place] No Information 1 Patricio Burnhamyne. . Referring Provider: Vishnu Stoll, Lay[address], [place], [address]. tel:[phone] [place] [address], [address] [place], [place] [address]u[address] [facility], [place], [place], [address], tel:[phone] [place] No Information 0 1 Patricio Burnhamyne. . Referring Provider: Vishnu Stoll, [address], [place], [address]. tel:[phone] [place], [place] [address]u[address] [place] [address], [id number], tel:[phone] [place] No Information 1 Patricio Burnhamyne. . Referring Provider: Vishnu Stoll, [address], [place], [address]. tel:[phone] [place], [place] [address], [place], [place], [address], tel:[phone] [place] No Information 1 Patricio Burnhamyne. . Referring Provider: Vishnu Stoll, [address]B/[address]A, [place], [address]. tel:[phone] [place] [address], [address], [place], [place], [address], [place] tel:[phone] [place] No Information 1 Patricio Burnhamyne. . Referring Provider: Vishnu Stoll, [address] [facility] [address]B/12A, [place], [address]. tel:[phone] [place] [address], [address], [place], [place], [address], [place] tel:[phone] [place] No Information 1 Patricio Burnhamyne. . Referring Provider: Vishnu Stoll, [address], [place], [address]. tel:[phone] [place] [address], [facility] [address], [place], [place], [address], [place] tel:[phone] [place] No Information 1 Patricio Brunhamyne. . Referring Provider: Vishnu Stoll, [address], [place], [address]. tel:[phone] [place] [address], [address], [place], [place], [address], [place] tel:[phone] [place] No Information 0 1 Patricio Burnhamyne. . Referring Provider: Vishnu Stoll, [address], [place], [address]. tel:[phone] [place] [address], [address], [place], [address], [place] tel:[phone] [place] No Information 0 1 Patricio Burnhamyne. . Referring Provider: Vishnu Stoll, [address]B/[address], [place], [address]. tel:[phone] [place] [address], [address], [place], [place], [address], [place] tel:[phone] [place] No Information Apr-0 1 Cady Jacobs. [address] [facility], [address], [place], [place], [facility], [place]. tel: [phone] [facility] [place], [place] [address], [place], [place], [address], [place] tel:[phone] [place] No Information Apr-0 1 Patricio Jeffries. . Referring Provider: Lay Blankens[address] [place] [address] [address], [place], [address]. tel:[phone] [place] [address] [address] [facility], [place], [place], [address], tel:[phone] [place] No Information Mar-2 1 Patricio Jeffries. . Referring Provider: Anthony Blankenship [facility] [address]B/[address]A, [place], [address]. tel:[phone] [place], [place] [address], [place], [place], [address], [place] tel:[phone] [place] No Information Mar-2 1 Griffin-H all Lenora. . [facility], [address] [facility], [place], [address], [place] tel:[phone] [place] No Information Mar-2 1 Amanda Goodman. . [facility], [place], [place], [address], [place] tel:[phone] [place] No Information Mar-2 1 Patricio Jeffries. . Referring Provider: Lay Blankenship1 [facility] [address]B/12A, [place], [address]. tel:[phone] [place], [place] [address], [place], [place], [address], [place] tel:[phone] [place] No Information Mar-2 1 Amanda Maxine. . [facility], [place], [place], [address], [place] tel:[phone] [place] No Information Mar-2 2 1 Patricio Jeffries. . Referring Provider: Vishnu Stoll, Lay1 [facility] [address]/6B/12A, [place], [address]. tel:[phone] [place] [address], [facility] [address], [place], [place], [address], [place] tel:[phone] [place] No Information May- 1 Patricio Jeffries. . Referring Provider: Vishnu Stoll, Lay1 [facility] [address]A/6B/12, [place], [address]. tel:[phone] [place] [address], [address], [place], [place], [address], [place] tel:[phone] [place] No Information May- 1 Lehnen Maxine. . [facility], [address], [place], [place], [address], [place] tel:[phone] [place] No Information May- 1 Lehnen Maxine. . [facility], [address], [place], [place], [address], [place] tel:[phone] [place] No Information May- 1 Patricio Jeffries. . Referring Provider: Vishnu Stoll, Anthony [facility] [address]/6B/12, [place], [address]. tel:[phone] [place] [address] [address], [place], [place], [address], [place] tel:[phone] [place] No Information 1 Patricio Jeffries. . Referring Provider: Vishnu Stoll, Anthony [facility] [address]A/6B/12A, [place], [address]. tel:[phone] [place] [address], [address], [place], [place], [address], [place] tel:[phone] [place] No Information Mar-0 8 1 Patricio Jeffries. . Referring Provider: Lay Blankenship1 [facility] [address] 6A/6B/12, [place], [address]. tel:[phone] [place] [address], [place], [place], [address], tel:[phone] [place] No Information May-0 1 Patricio Jeffries. . Referring Provider: Vishnu Stoll, [address] [facility] [address]B/12A, [place], [address]. tel:[phone] [place] [address], [id number], tel:[phone] [place] No Information May-0 - 1 Patricio Jeffries. . Referring Provider: Lay Blankenship1 [facility] 6A/6B/12, [place], [address]. tel:[phone] [place] [address], [id number], tel:[phone] [place] No Information 1 Patricio Jeffries. . Referring Provider: Vishnu Stoll, Lay1 [facility] [address]A/6B/12, [place], [address]. tel:[phone] Family History Family Member Type Diagnosis Age At Onset No Information Payers Payer name Insurance type Covered republican ID Authormika tiglenn(s) R [id number] Social History Type Description Quantity Date Captured Comments Sex Male Smoking Status No Information Chief Complaint And Reason For Visit No Information Reason For Referral Reason For Referral No Information Plan Of Treatment Date Type Action Status Referral Ordered: PCP timeframe: 1 week. (related to Overweight) ordered Referral Ordered: Weight management: Referral to physician timeframe: 1 Month. (related to Overweight) ordered History Of Present Illness Encounter Date Complaint History Of Prese nt Illness No Information Functional Status Date Functional Assessmen t No Information Instructions Date Instruction Additional Infor jose Prescribed activity/exercise edu cation Related to Overweight Dietary needs education Related to Overweight Dietary needs education Related to Overweight Dietary needs education Related to Overweight Prescribed activity/exercise edu cation Related to Overweight Prescribed activity/exercise edu cation Related to Overweight Assessments Type Assessment Date No Information Patient Care Teams Name Effective Dates (start - stop) Status Members No Information
--- NOTE | ~2024-12-01 | CT_ITS ---
[facility] EXAMINATION: CT abdomen pelvis w con COMPARISON: None HISTORY: mid abdominal pain, radiates to back TECHNIQUE: Axial images were obtained through the abdomen, pelvis post administration of IV contrast. Oral contrast was also administered. Coronal reconstruction images were obtained from the axial views. CT scan performed using dose optimization techniques including the following automated exposure control; adjustment of mA and/or kV; use of iterative reconstruction technique. Automatic exposure control was used to reduce radiation dose. Permanent radiation dose record is archived to PACS. FINDINGS: CT abdomen: LUNG BASES: The lung bases are clear. The visualized portions of the heart and pericardium are unremarkable. LIVER: Moderate hepatic steatosis. Portal vein patent. No intrahepatic biliary duct dilatation. SPLEEN: Unremarkable. KIDNEYS: Right Kidney: Unremarkable. No calculi. No hydronephrosis. Left Kidney: Left kidney midpole simple cyst 1 x 1 cm. ADRENAL GLANDS: Unremarkable. PANCREAS: Unremarkable. GALLBLADDER/BILIARY: Cholelithiasis. STOMACH AND ESOPHAGUS: Visualized stomach and esophagus within normal limits. BOWEL/MESENTERY: Moderate fecal content, no colitis or diverticulitis. Appendix normal. Mesentery normal. Small bowel normal. ADENOPATHY/RETROPERITONEUM: No lymphadenopathy. AORTA/VASCULATURE: Normal caliber aorta. FREE FLUID OR FREE AIR: None. CT pelvis: SOLID ORGANS/REPRODUCTIVE: Unremarkable. BLADDER: Mild circumferential thickening of the bladder wall noted. OSSEOUS STRUCTURES: No acute osseous abnormality.No suspicious lesions. OVERLYING SOFT TISSUES: Unremarkable. IMPRESSION: 1. Mild cystitis Reviewed, dictated and finalized at location A. IMPRESSION: 1. Mild cystitis
--- OUTSIDE RECORDS SUMMARY | 2024-12-01 21:38 | XMS_ITS | Encounter Summary ---
Author Organization [facility] Address [address] [place] [address] Phone Care Team Providers Care Double End Sewer Name Role Phone Mariya Alvarez MD Primary Care Provider [phone] Encounter Details Date Type Department Care Team (Late st Contact Info) Description 01/16/2020 Orders Only [facility] Scanning, Provider Social History Tobacco Use Types Packs/Day Years Used Date Smoking Tobacco: Never Smokeless Tobacco: Never Alcohol Use Standard Drinks/Week Comments Yes 0 (1 standard drink = 0.6 oz pur e alcohol) SOCIAL Sex and Gender Information Value Date Recorded Sex Assigned at Not on file Legal Sex Male 5:26 AM CLINICAL SERVICES CONSULTANT Gender Identity Male 06/20/2020 8:10 AM CDT Sexual Orientation Straight 06/20/2020 8: 10 AM CDT documented as of this encounter Plan of Treatment Not on file documented as of this encounter Procedures Procedure Name Priority Date/Time Associated Diagnosis Comments SCAN - RADIOLOGY/IMAGING 01/16/2020 documented in this encounter Results * SCAN - RADIOLOGY/IMAGING (01/16/2020) Anatomical Region Laterality Modality Other us Provider Scanning Final Result documented in this encounter Visit Diagnoses Not on filedocumented in this encounter Care Teams Double End Sewer Relationship Specialty Start Date End Date Mariya Alvarez MD [address] [place] [address] PCP - General Family Medicine 10/14/19 documented as of this encounter
[2024-12-01 21:47] VITALS: BP 140/77; PULSE 89; RESP 20; TEMP 36.6; O2SAT 100
[2024-12-01 22:10] LABS: Hematocrit 41.4 % (42.0-52.0); Hemoglobin 14.1 g/dL (14.0-18.0); Immature Granulocyte Percent A 0.3 % (0-0.5); Lymphocytes Absolute Auto 2.38 K/mm3 (0.9-3.2); Mean Corpuscular HGB Conc 34.1 g/dl (32-36); Mean Corpuscular Hemoglobin 29.5 pg (26-34); Mean Corpuscular Volume 86.6 fl (80-100); Nucleated Red Blood Cells Absolute Auto 0.000 K/mm3 (0.0-0.012); Nucleated Red Blood Cells Perc 0.0 % (0.0-0.2); Platelet Count Result 219 k/mm3 (150-375); Red Blood Count 4.78 M/mm3 (4.6-6.20); White Blood Count 7.6 K/mm3 (4.5-10.0)
[2024-12-01 22:11] LABS: Add Urine Microscopic? NO; Appearance Urine Clear (Clear); Glucose Urine UA Negative (Negative); Leukocyte Esterase Ur Negative LEU/UL (Negative); Nitrate Urine Negative (Negative); Specific Grav Ur 1.018 (1.001-1.035)
[2024-12-01 22:25] LABS: Alanine Aminotransferase 33 U/L (6-50); Albumin Level 4.3 g/dL (3.5-5.1); Alkaline Phosphatase 65 U/L (38-126); Anion Gap 9 mmol/L (4-12); Aspartate Amino Transferase 31 U/L (17-59); Bilirubin,Total 0.8 mg/dL (0.2-1.3); Blood Urea Nitrogen 14 mg/dL (9-20); Calcium 9.2 mg/dL (8.4-10.2); Carbon Dioxide 24 mmol/L (22-30); Chloride 107 mmol/L (98-107); Estimated CRCL calculation 91 ml/min; Estimated Glomerular Filt Rate > 60; Glucose 131 mg/dL (65-110); Lipase 63 U/L (23-300); Potassium 3.8 mmol/L (3.4-5.0); Sodium 140 mmol/L (137-145); Total Protein 7.5 g/dL (6.3-8.2)
[2024-12-01 22:32] LABS: Magnesium 2.0 mg/dL (1.6-2.3)
--- OUTSIDE RECORDS SUMMARY | 2024-12-01 22:34 | XMS_ITS | Clinical Summary ---
Author Organization [facility] Address [address] [place] [address] Care Team Providers Care Family Program Specialist Name Role Phone Mariya Alvarez MD Primary Care Provider [phone] Allergies No known active allergies Medications allopurinoL (ZYLOPRIM) 300 mg tabletIndicatio ns:prevention of acute gout attack Take 1 tablet (300 mg total) by mouth every morning 09/10/2019 Active lisinopriL (PRINIVIL,ZESTR IL) 10 mg tabletIndicatio ns:hypertension Take 1 tablet (10 mg total) by mouth every morning 11/10/2019 Active apremilast 30 mg tabletIndicatio ns:Psoriatic arthritis (HCC) Take 1 tablet (30 mg total) by mouth 2 (two) times a day 180 tablet 1 01/24/2024 Active methotrexate 2.5 mg tabletIndicatio ns:Rheumatoid factor positive TAKE 7 TABLETS BY MOUTH ONCE EVERY 7 DAYS 28 tablet 2 10/08/2024 Active folic acid (FOLVITE) 1 mg tablet TAKE 1 TABLET(1 MG) BY MOUTH DAILY 90 tablet 1 10/08/2024 Active meloxicam (MOBIC) 15 mg tablet Take 1 tablet (15 mg total) by mouth 3 (three) times a week 15 tablet 10/30/2024 Active Active Problems Problem Noted Date Diagnosed Date Psoriasis 06/05/2020 Inflammatory arthritis 06/05/2020 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 04/07/2020 Overview (04/07/2020): Added automatically from request for surgery [id number] Immunizations Immunization Administration Dates Next Due Pfizer SARS-CoV-2 Monovalent Vaccination (12+ Yrs) PURPLE 07/09/2020,06/18/2020 Surgical History Surgery Date Site/Laterality Comments KNEE SURGERY ANGELINA WRIST SURGERY Right Medical History Medical History Date Comments Hypertension Gout Family History Medical History Relation Name Comments Alcohol abuse Father Arthritis Father Cancer Father Diabetes Father Gout Father Heart disease Father Hypertension Father Arthritis Mother Dementia Mother Hypertension Mother Anesthesia problems Neg Hx Stroke Neg Hx Relation Name Status Comments Father Mother Social History Tobacco Use Types Packs/Day Years Used Date Smoking Tobacco: Never Smokeless Tobacco: Never Tobacco Cessation:Counseling Given: Not Answered Alcohol Use Standard Drinks/Week Comments Not Currently 0 (1 standard drink = 0.6 oz pur e alcohol) occasional Sex and Gender Information Value Date Recorded Sex Assigned at Not on file 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 Gender Identity Male 06/20/2020 8:10 AM CDT Sexual Orientation Straight 06/20/2020 8: 10 AM CDT Obstetrics History Last Filed Vital Signs Vital Sign Reading Time Taken Comments Blood Pressure 132/84 01/24/2024 11:04 AM GRAVEL TRUCK DRIVER Pulse 79 01/24/2024 11:04 AM GRAVEL TRUCK DRIVER Temperature 36.9 C (98.5 F) 01/24/2024 11:04 AM GRAVEL TRUCK DRIVER Respiratory Rate 17 04/29/2020 2:15 PM GRAVEL TRUCK DRIVER Oxygen Saturation 97% 07/19/2022 11: 10 AM CDT Inhaled Oxygen Concentration - - Weight 152.5 kg (336 lb 3.2 oz) 024 11:04 AM GRAVEL TRUCK DRIVER Height 180.3 cm (5' 11) 01/24/2024 11: 04 AM GRAVEL TRUCK DRIVER Body Mass Index 46.89 01/24/2024 11:04 AM GRAVEL TRUCK DRIVER Plan of Treatment Health Maintenance Due Date Last Done Comments Colon Cancer Screening-Colonoscopy 1974 Depression Screening 1974 Prostate Cancer Screening-PSA 1974 DTaP/Tdap/Td Vaccine (1 - Tdap) 1985 Hepatitis B Screening 1992 Regular Well Visit/Exam 18-64 1992 Pneumococcal vaccine <65 (1 of 2 - PCV) 1993 Zoster Vaccine (1 of 2) 1993 Covid-19 Vaccine (3 - Pfizer risk series) 08/06/2020 07/09/2020, 06/18/2020 Influenza Vaccine (#1) 2024 11/14/2018 Hepatitis C Screening Completed 04/19/2022, 021 Procedures Procedure Name Priority Date/Time Associated Diagnosis Comments HEPATITIS PANEL, ACUTE Routine 04/19/2022 10:55 AM GRAVEL TRUCK DRIVER Psoriatic arthritis (HCC) from Last 3 Months or Most Recently Relevant to Health Maintenance Results * Hepatitis panel, acute (04/19/2022 10:55 AM GRAVEL TRUCK DRIVER) Hep A IgM Nonreactive Nonreactive [facility] Hep B core IgM Nonreactive Nonreactive [facility] Hep C Ab Nonreactive Nonreactive [facility] Comment:Antibodies to HCV no t detected. Does NOT exclude the possibility of recent exposure to HCV. Current interpretive data was last revised on 21 HepBsAg Nonreactive Nonreactive [facility] Blood 04/19/2022 10:5 5 AM GRAVEL TRUCK DRIVER 04/19/2022 1:41 PM GRAVEL TRUCK DRIVER Danette Jennings MD LAB MICROBIOLOGY - GENERAL ORDER KYLEIGH Final Result [facility] [place] [address] from Last 3 Months or Most Recently Relevant to Health Maintenance Insurance [facility] Care Teams Family Program Specialist Relationship Specialty Start Date End Date Mariya Alvarez MD [address] [place] [address] PCP - General Family Medicine 10/14/19
--- OUTSIDE RECORDS SUMMARY | 2024-12-01 22:34 | XMS_ITS | Encounter Summary ---
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
--- NOTE | 2024-12-01 23:13 | ED_ITS ---
HPI - Abdominal Pain General Chief Complaint: Abdominal Pain Stated Complaint: Upper abd pain-radiates into back x 1.5 hours Time Seen by Provider: 12/01/24 22:07 History of Present Illness HPI narrative: Patient is a 49-year-old male who presents emergency department this evening complaining of sudden onset abdominal pain which originated in his mid abdomen and then radiated to his left flank and left lower quadrant. Patient denies any similar symptoms in the past, denies any history of diverticulitis or kidney stones. Denies any previous abdominal surgeries. Patient states that when the pain initially started it was a 10/10, however, while waiting in the emergency department the pain has subsided and currently states that he does not have any pain. Admits that when the pain started he was very nauseous and short of breath. Denies any active shortness of breath at this time but states that he does get waves of nausea. Denies any similar symptoms in the past. Denies any diarrhea. No additional symptoms or concerns at this time. Related Data Home Medications ?Medication ?Instructions ?Recorded ?Confirmed ?Last Taken ?Type clobetasol 0.05 % topical ointment topical 06/07/23 Unknown History Allergies Allergy/AdvReac Type Severity Reaction Status Date / Time No Known Allergies Allergy Verified 12/01/24 21:37 Review of Systems 2 Review of Systems: All systems are reviewed and are negative unless stated otherwise in the HPI. [facility] Past Medical History Medical History Psoriasis Psoriatic arthritis Essential (primary) hypertension Obstructive sleep apnea Right knee pain Degenerative arthritis of knee, bilateral BMI 40.0-44.9, adult Gout, unspecified Surgical History Surgical History H/O knee surgery left knee scope Family History Family History Father Family history of cardiovascular disease Social History Social History Smoking status: Never smoker Alcohol intake: current Alcohol use details: occasional Substance use: never Substance use type: does not use Lack of Transportation: No Lack of Food: Never True Current Housing: I Have Housing Concerned About Future Housing: No Difficulty Paying Gas/Electric Bills: No Difficulty Paying for Meds: YES Currently Unemployed: YES Education: High School Diploma/GED Difficulty w/ Childcare or Family Care: No Living arrangements: with friend(s) Additional living arrangements comments: lives with girlfriend Gender identity (if verbalized by the patient): Male Sexual Orientation (if Verbalized by the Patient): Straight or Heterosexual Spiritual care concerns: No Exam 2 Narrative: General: Alert, awake, afebrile, in no acute distress. HEENT: PERRL, no rhinorrhea, no post nasal drip, oropharynx clear. Neck: Trachea midline, no JVD, no lymphadenopathy. Cardiovascular: Regular rate and rhythm, no murmurs, rubs or gallops, no peripheral edema. Respiratory: Clear to auscultation bilaterally, no tachypnea, no wheezing, no rhonchi, no rubs, no respiratory distress. Abdomen: Soft, nontender, nondistended, no rebound, no guarding, no peritoneal signs. Musculoskeletal: No joint swelling or deformity, normal muscle tone. Skin: No rashes or petechia, no signs of infection. Psychiatric: Alert and oriented, normal behavior and judgment for situation. Neurological: Alert and oriented to person, place, and time. Follows all commands. No focal deficits, speech is clear and fluent. Course Vital Signs Vital signs: Vital Signs Temperature 97.8 F 12/01/24 21:47 Pulse Rate 89 12/01/24 21:47 Respiratory Rate 12/01/24 21:47 Blood Pressure 140/77 12/01/24 21:47 Pulse Oximetry 100 12/01/24 21:47 Temperature 97.8 F 12/01/24 21:47 Pulse Rate 89 12/01/24 21:47 Respiratory Rate 12/01/24 21:47 Blood Pressure 140/77 12/01/24 21:47 Pulse Oximetry 100 12/01/24 21:47 MDM - Abdominal Pain MDM Narrative Medical decision making narrative: The patient was evaluated by myself in the emergency department. History is obtained from patient who is an independent historian and physical exam was performed. External medical records were reviewed at this time. IV was established and pertinent tests were ordered. Patient was administered 4 mg IV Zofran for nausea. Laboratory results obtained revealing no acute process. Urinalysis unremarkable. Imaging studies obtained included CT abdomen pelvis with IV contrast which was independently interpreted by me revealing distended gallbladder containing gallstones otherwise no acute process, which is pending final radiology interpretation. Differential diagnosis considerations include kidney stone/renal colic, diverticulitis, biliary colic/cholecystitis, gastroenteritis. Comorbidities impacting this visit include none. I have evaluated and discussed social determinants of health with the patient that could potentially impact subsequent diagnosis and treatment plans. On repeat assessment of the patient, reevaluation revealed that the patient is doing well and is in no acute distress. Patient symptoms have improved since he arrived to our emergency department. Repeat vital signs were all reviewed and noted to be stable. Differential diagnosis and treatment plan were discussed with the patient at bedside. Patient agrees with discussion and after shared medical decision making agrees with discharge. All questions were answered to the patient's satisfaction. Patient will follow up with General surgery in 3-5 days. A script for Zofran as the patient's pharmacy to use as needed for nausea/vomiting. Patient was provided with strict return precautions and instructed to return to the emergency department if any new or worsening symptoms develop. The patient was discharged in stable condition. Lab Data 12/01/24 22:03 12/01/24 22:03 Labs: Lab Results 12/01/24 Range/Units 22:03 WBC 7.6 (4.5-10.0) K/mm3 RBC 4.78 (4.6-6.20) M/mm3 Hgb 14.1 (14.0-18.0) g/dL Hct 41.4 L (42.0-52.0) % MCV 86.6 (80-100) fl MCH 29.5 (26-34) pg MCHC 34.1 (32-36) g/dl RDW 12.7 (11.5-14.5) % Plt Count 219 (150-375) k/mm3 MPV 11.6 H (7.4-10.4) fl Immature Gran % (Auto) 0.3 (0-0.5) % Neut % (Auto) 59.5 (45.5-73.1) % Lymph % (Auto) 31.2 (18.3-44.2) % [place] % (Auto) 6.0 (2.6-8.5) % Eos % (Auto) 2.2 (0-4.4) % Baso % (Auto) 0.8 (0.2-1.2) % Lymph # (Auto) 2.38 (0.9-3.2) K/mm3 [place] # (Auto) 0.5 (0.1-0.6) K/mm3 Eos # (Auto) 0.2 (0-0.3) K/mm3 Baso # (Auto) 0.1 (0.0-0.1) K/mm3 Abs Immat Gran (auto) 0.02 (0.00-0.031) K/mm3 Absolute Neuts (auto) 4.5 (1.3-6.7) K/mm3 Absolute Nucleated RBC 0.000 (0.0-0.012) K/mm3 Nucleated RBC % 0.0 (0.0-0.2) % Sodium 140 (137-145) mmol/L Potassium 3.8 (3.4-5.0) mmol/L Chloride 107 (98-107) mmol/L Carbon Dioxide 24 (22-30) mmol/L Anion Gap 9 (4-12) mmol/L BUN 14 (9-20) mg/dL Creatinine 1.26 (0.7-1.3) mg/dL Estim Creat Clear Calc 91 ml/min Estimated GFR > 60 (59 - ) Glucose 131 H (65-110) mg/dL Calcium 9.2 (8.4-10.2) mg/dL Magnesium 2.0 (1.6-2.3) mg/dL Total Bilirubin 0.8 (0.2-1.3) mg/dL AST 31 (17-59) U/L ALT 33 (6-50) U/L Alkaline Phosphatase 65 (38-126) U/L Total Protein 7.5 (6.3-8.2) g/dL Albumin 4.3 (3.5-5.1) g/dL Lipase 63 (23-300) U/L Urine Color Yellow (Yellow) Urine Appearance Clear (Clear) Urine pH 5.0 (5.0-9.0) Ur Specific [place] 1.018 (1.001-1.035) Urine Protein Negative (Negative) mg/dL Urine Glucose (UA) Negative (Negative) mg/dL Urine Ketones Negative (Negative) mg/dL Ur Blood (Man) Negative (Negative) Urine Nitrate Negative (Negative) Urine Bilirubin Negative (Negative) Urine Urobilinogen 1.0 (<2.0) mg/dL Leukocyte Esterase Rfl Negative (Negative) RAMANA/UL Discharge Plan Discharge Clinical Impression: Biliary colic, Gallstones, Abdominal pain Patient Disposition: Home Condition: Improved Instructions: Antibiotic Form, Gallstones (ED), Abdominal Pain (ED) Additional Instructions: Please follow-up with the general surgeon you were provided with today regarding your gallstones. Call tomorrow to set up a follow-up appointment to be seen within the next 3-5 days. Use the prescribed Zofran as needed for nausea/vomiting. Return to the emergency department if any new or worsening symptoms develop. Patient Language: Sammarinese Prescriptions: New ondansetron 4 mg tablet,disintegrating 4 mg PO Q8H PRN (Reason: nausea and vomiting) Qty: 10 0RF No Action clobetasol 0.05 % ointment topical Zepbound 5 mg/0.5 mL pen injector 5 mg subcut WEEKLY Qty: 6 1RF meloxicam 15 mg tablet 15 mg PO DAILY Qty: 90 1RF allopurinol 300 mg tablet See Rx Instructions .ROUTE .COMPLEX Qty: 90 1RF Dose Instruction: TAKE 1 TABLET BY MOUTH DAILY Rx Instructions: TAKE 1 TABLET BY MOUTH DAILY (DME) CPAP See Rx Instructions .Route .MEDSUPPLY Qty: 1 0RF Rx Instructions: CPAP 13 cm H2O, size large Resmed N30i AirTouch mask, CPAP filters/tubing and heated humidity. lisinopril 10 mg tablet See Rx Instructions .ROUTE .COMPLEX Qty: 90 1RF Dose Instruction: TAKE 1 TABLET BY MOUTH DAILY Rx Instructions: TAKE 1 TABLET BY MOUTH DAILY Follow-up/Referrals: Indy Alvares MD [Physician, General Surgery] - 3 Days Javier Lepe MD [Primary Care Provider, Family Practice] - 1 Week Time of Disposition: 00:18
[2024-12-02 00:27] VITALS: BP 141/95; PULSE 75; RESP 18; O2SAT 99
== END 2024-12-02 00:29 | disposition home or self-care (01) ==
PROVIDERS: Emergency Provider Emergency Medicine; PCP Family Medicine
DX: K80.20 Calculus of gallbladder without cholecystitis without obstruction (principal); R10.84 Generalized abdominal pain; L40.50 Arthropathic psoriasis, unspecified; I10 Essential (primary) hypertension; G47.30 Sleep apnea, unspecified
CPT/HCPCS: 36415; 74177; 80053; 81003; 83690; 83735; 85025; 99284; Q9967

== ENCOUNTER 2025-01-06 12:16 | Outpatient (CLI) | payer OTHER, SELFPAY ==
--- NOTE | 2025-01-06 12:20 | ECG_ITS ---
Test Date: 2025-01-06 12:30:27 Measurements Intervals [place] Rate: 62 P: 38 OK: 151 QRS: 2 QRSD: 104 T: 18 QT: 377 QTc: 384 Interpretive Statements SINUS RHYTHM WITH SINUS ARRHYTHMIA BORDERLINE R WAVE PROGRESSION, ANTERIOR LEADS BASELINE ARTIFACT- I, II, AVR, AVL, AVF, V6 BORDERLINE ECG No previous ECG available for comparison Electronically Signed On 01-06-2025 13:41:51 CDT by David Montano D.O.
[2025-01-06 12:54] LABS: Amylase 95 U/L (30-110)
== END 2025-01-06 12:17 | disposition home or self-care (01) ==
PROVIDERS: PCP Family Medicine; Visit Provider Surgery
DX: K80.20 Calculus of gallbladder without cholecystitis without obstruction (principal); I10 Essential (primary) hypertension; Z01.818 Encounter for other preprocedural examination
CPT/HCPCS: 36415; 82150; 86850; 86900; 86901; 93005

== ENCOUNTER 2025-01-09 01:59 | Day surgery (SDC) | payer OTHER, SELFPAY ==
--- NOTE | 2025-01-03 14:52 | SUR.PREOP ---
[facility] has started construction of its new state of the art ER which will open Spring 2026. With this, we anticipate parking may be a challenge for some our surgical patients and families. Parking spaces are limited but are available for all Surgical, obstetrics, and ER patients sharing this lot. If you arrive and find you are having a hard time finding a parking space, please note that we understand the challenges, please drive around the hospital and park near Hospital Entrance 1. When you enter this entrance, you can ask a volunteer to direct or take you back to the surgical waiting area to check in. We appreciate everyone?s understanding of these expected challenges while we build for your future. Report to the Outpatient Waiting Room, entrance under the green pavilion located off [address], at time _6AM on date 01/09/25__. Planned Procedure Time: _730AM___.? Time changes happen often and if your time is changed the preop area will call you the afternoon before. - You and your visitor will be asked to self-screen and do not enter if you have any COVID symptoms. Please call surgeon if you need to reschedule. - A mask is optional within the hospital at this time. Patients may have clear liquids (water, carbonated beverages, clear teas, apple juice) until 3 hours prior to surgery with a maximum of 20 ounces. - No food from midnight until time of surgery and no smoking, or chewing tobacco (or any form of nicotine). No chewing gum, candy or mints. Take only the following medications with a SIP of water on the morning of surgery: _ None___ DO NOT STOP ANY OF YOUR OTHER PRESCRIPTION MEDICATIONS PRIOR TO SURGERY EXCEPT THE FOLLOWING Hold all vitamins and supplements for 3 days per anesthesiologist. Medications to discontinue per physician _Advised to hold Mounjaro for 10 days prior, follow up with providers regarding the methotrexate and meloxicam Date to take last dose of vitamins___01/05/25___ Please no make-up, nail upper sorbian, hairspray, perfume, deodorant, or body powder the day of surgery.? No jewelry (including any body piercings) or valuables the day of surgery, leave them at home.? Please take a shower or bath the night before, or the morning of, surgery with an antibacterial soap.? Wear comfortable, loose fitting clothing.?. - Jewelry must be removed prior to entering the operating room.? Rings and piercings that are not removed may be cut off. - The hospital will not accept responsibility for valuables.? - Please leave all valuables, including medications, at home the day of surgery. If you are going home after surgery, a licensed starting gate driver must drive you home.? - NO public transportation without another adult if you receive anesthesia. - We recommend that an adult stay with you for 24 hours following discharge. - We also recommend that you do not drive, make important decision, drink alcoholic beverages, or take any drugs that were not prescribed by your health care provider for at least 24 hours after your discharge time. Follow any additional instructions given to you from your surgeon. Telephone instructions given to __Bill and asked if any additional questions and then verbalized understanding. Patient advised to call surgeon office or pre surgery nurse liaison [phone] if any additional questions.
[2025-01-03 15:15] VITALS: BMI 41.2
[2025-01-09] VITALS (9 sets, daily range): BP systolic 123–158; BP diastolic 67–91; PULSE 70–80; RESP 10–18; TEMP 36.2–36.4; O2SAT 94–100
--- OUTSIDE RECORDS SUMMARY | 2025-01-09 02:02 | XMS_ITS | Clinical Summary ---
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 Gender Identity Male 06/20/2020 8:10 AM CDT Sexual Orientation Straight 06/20/2020 8: 10 AM CDT Obstetrics History Last Filed Vital Signs Vital Sign Reading Time Taken Comments Blood Pressure 132/84 01/24/2024 11:04 AM SHEETMETAL PATTERNMAKER Pulse 79 01/24/2024 11:04 AM SHEETMETAL PATTERNMAKER Temperature 36.9 C (98.5 F) 01/24/2024 11:04 AM SHEETMETAL PATTERNMAKER Respiratory Rate 17 04/29/2020 2:15 PM SHEETMETAL PATTERNMAKER Oxygen Saturation 97% 07/19/2022 11: 10 AM CDT Inhaled Oxygen Concentration - - Weight 152.5 kg (336 lb 3.2 oz) 024 11:04 AM SHEETMETAL PATTERNMAKER Height 180.3 cm (5' 11) 01/24/2024 11: 04 AM SHEETMETAL PATTERNMAKER Body Mass Index 46.89 01/24/2024 11:04 AM SHEETMETAL PATTERNMAKER Plan of Treatment Health Maintenance Due Date [...] HEPATITIS PANEL, ACUTE Routine 04/19/2022 10:55 AM SHEETMETAL PATTERNMAKER Psoriatic arthritis (HCC) from Last 3 Months or Most Recently Relevant to Health Maintenance Results * Hepatitis panel, acute (04/19/2022 10:55 AM SHEETMETAL PATTERNMAKER) Hep A IgM Nonreactive Nonreactive [facility] Hep B core IgM Nonreactive Nonreactive [facility] Hep C Ab Nonreactive Nonreactive [facility] Comment:Antibodies to HCV no t detected. Does NOT exclude the possibility of recent exposure to HCV. Current interpretive data was last revised on 21 HepBsAg Nonreactive Nonreactive [facility] Blood 04/19/2022 10:5 5 AM SHEETMETAL PATTERNMAKER 04/19/2022 1:41 PM SHEETMETAL PATTERNMAKER Danette Jennings MD LAB MICROBIOLOGY - GENERAL ORDER KYLEIGH Final Result [facility] [place] [address] from Last 3 Months or Most Recently Relevant to Health Maintenance Insurance [facility] H[facility]/PPO Address: [place] [address] [facility] H[facility]/PPO Address: [place] [address] [facility] H[facility]/PPO Address: [place] [address] Care Teams Manager Infusion Relationship Specialty Start Date End Date Mariya Alvarez MD [address] [place] [address] PCP - General Family Medicine 10/14/19
--- OUTSIDE RECORDS SUMMARY | 2025-01-09 02:04 | XMS_ITS | Encounter Summary ---
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
[2025-01-09] MEDS: ACETAMINOPHEN 500 MG TABLET 1000 MG PO (06:25)
[2025-01-09] MEDS: LACTATED RINGERS 1,000 ML 30 ML IV CONT ×2 (06:30→09:11)
[2025-01-09] MEDS: KETOROLAC 15 MG/ML VIAL (*BKC) IV PUSH (06:30)
[2025-01-09] MEDS: INDOCYANINE GREEN 25 MG VIAL WITH DILUENT 3.75 MG IV PUSH (06:33)
--- NOTE | 2025-01-09 07:13 | WPDANESEPPF ---
Anes - Initial Pre Proc Eval Procedure: Operation Date: 01/09/25 07:30 Proposed Procedures p Robotic Laparoscopic Cholecystectomy - Indy Alvares MD Date/Time: 01/09/25 07:13 Surgeon: Indy Alvares MD Pre Op Diagnosis: Acute Calculus Cholecystitis Patient Data Age: 49 Gender: M Height: 1.82 m Weight: 138.9 kg Last Vital Signs Temp 97.6 F 01/09/25 06:49 Pulse 70 01/09/25 06:49 Resp 18 01/09/25 06:49 BP 123/79 01/09/25 06:49 Pulse Ox 98 01/09/25 06:49 O2 Del Method Room Air 01/09/25 06:49 Allergies Allergy/AdvReac Type Severity Reaction Status Date / Time No Known Allergies Allergy Verified 01/09/25 06:41 Home Medications ?Medication ?Instructions ?Recorded ?Confirmed ?Type clobetasol 0.05 % topical ointment 1 applic topical DAILY PRN psoriais 06/07/23 01/03/25 History allopurinol 300 mg tablet See Rx Instructions .Route 07/22/24 01/09/25 Rx .COMPLEX #90 tabs CPAP #1 ea 09/25/24 12/05/24 Rx lisinopril 10 mg tablet See Rx Instructions .Route 09/30/24 01/09/25 Rx .COMPLEX #90 tabs meloxicam 15 mg tablet 15 mg PO DAILY #90 tabs 11/11/24 01/09/25 Rx folic acid 1 mg tablet 1 mg PO DAILY 01/03/25 01/09/25 History methotrexate sodium 2.5 mg tablet 2.5 mg PO WEEKLY 01/03/25 01/09/25 History multivitamin (Daily Multi-Vitamin 1 tablet PO DAILY 01/03/25 01/09/25 History tablet) tirzepatide 5 mg/0.5 mL 5 mg subcut WEEKLY 01/03/25 01/09/25 History subcutaneous pen injector (Mounjaro) Patient hx anesthesia problems: none Family hx anesthesia problems: none Results Review: All pre-operative results and documents have been reviewed as part of the pre-operative evaluation. [facility] Past Medical History Medical History Psoriasis Psoriatic arthritis Essential (primary) hypertension Obstructive sleep apnea Right knee pain Degenerative arthritis of knee, bilateral BMI 40.0-44.9, adult Gout, unspecified Surgical History Surgical History History of surgery on right wrist H/O knee surgery left knee scope Family History Family History Father Family history of cardiovascular disease Social History Social History Smoking status: Never smoker Alcohol intake: current Alcohol use details: occasional Substance use: never Substance use type: does not use Do You Feel Safe in your Home?: Yes Lack of Transportation: No Lack of Food: Never True Current Housing: I Have Housing Concerned About Future Housing: No Difficulty Paying Gas/Electric Bills: No Difficulty Paying for Meds: YES Currently Unemployed: YES Education: High School Diploma/GED Difficulty w/ Childcare or Family Care: No Living arrangements: with friend(s) Additional living arrangements comments: lives with girlfriend Gender identity (if verbalized by the patient): Male Sexual Orientation (if Verbalized by the Patient): Straight or Heterosexual Spiritual care concerns: No Anes - Eval Final PreProcedure Day of Procedure 01/09/25 07:13 Patient weight: morbidly obese Lungs: normal air movement Airway: Mallampati scale class III Neurological: alert and oriented Last oral intake: >/= 8 hours ASA classification: III Emergent: no Anesthetic plan: proceed Anesthesia type and monitoring: general ETT and standard monitoring Results Review: All pre-operative results and documents have been reviewed as part of the pre-operative evaluation. HTN, EDWAR on CPAP. Active w golfing, bowling, no cp or sob. Informed Consent: The patient's anesthetic plan and its attendant risks and benefits were discussed with the patient/family/POA. Questions were solicited and answers provided to the satisfaction of the patient/family/POA.
--- NOTE | 2025-01-09 07:25 | P.HP_ITS ---
H&P: HPI History of Present Illness Date/Time: 01/09/25 07:25 Chief Complaint: Cholecystitis, cholelithiasis Narrative: Mr. Eagle presents to the office for evaluation. Patient was recently in [facility] ER on 12/01/2024 with c/o of radiating abdominal pain and nausea after eating. CT scan was done showing gallstones. Has had other similar episodes. Has family history of gallbladder disease and his father. Review of Systems Review of Systems: All systems reviewed & are unremarkable except as noted in HPI and below PMFSH Past Medical History Medical History Psoriasis Psoriatic arthritis Essential (primary) hypertension Obstructive sleep apnea Right knee pain Degenerative arthritis of knee, bilateral BMI 40.0-44.9, adult Gout, unspecified Surgical History Surgical History History of surgery on right wrist H/O knee surgery left knee scope Family History Family History Father Family history of cardiovascular disease Social History Social History Smoking status: Never smoker Alcohol intake: current Alcohol use details: occasional Substance use: never Substance use type: does not use Do You Feel Safe in your Home?: Yes Lack of Transportation: No Lack of Food: Never True Current Housing: I Have Housing Concerned About Future Housing: No Difficulty Paying Gas/Electric Bills: No Difficulty Paying for Meds: YES Currently Unemployed: YES Education: High School Diploma/GED Difficulty w/ Childcare or Family Care: No Living arrangements: with friend(s) Additional living arrangements comments: lives with girlfriend Gender identity (if verbalized by the patient): Male Sexual Orientation (if Verbalized by the Patient): Straight or Heterosexual Spiritual care concerns: No Meds Home Medications and Allergies Home Medications ?Medication ?Instructions ?Recorded ?Confirmed ?Type clobetasol 0.05 % topical ointment 1 applic topical DA AGUSTINA PRN psoriais 06/07/23 01/03/25 History allopurinol 300 mg tablet See Rx Instructions .Route 0 07/22/24 01/09/25 Rx .COMPLEX #90 tabs CPAP #1 ea 09/25/24 12/05/24 Rx lisinopril 10 mg tablet See Rx Instructions .Route 0 09/30/24 01/09/25 Rx .COMPLEX #90 tabs meloxicam 15 mg tablet 15 mg PO DAILY #90 tabs 10/1901/09/25 Rx folic acid 1 mg tablet 1 mg PO DAILY 01/03/2501/09 History methotrexate sodium 2.5 mg tablet 2.5 mg PO WEEKLY 01/09/25 History multivitamin (Daily Multi-Vitamin 1 tablet PO DAILY 01/09/25 History tablet) tirzepatide 5 mg/0.5 mL 5 mg subcut WEEKLY 01/03/25 01/09/25 History subcutaneous pen injector (Naveed) Allergies Allergy/AdvReac Type Severity Reaction Status Date / Time No Known Allergies Allergy Verified 01/09/25 06:41 Vital Signs Vital Signs - 24 hr 01/09/25 06:49 Temperature 36.4 C Pulse Rate 70 Respiratory Rate 18 Blood Pressure 123/79 Pulse Oximetry 98 Oxygen Delivery Room Air Exam Const: General: cooperative, comfortable, no acute distress and obese Resp: Auscultation: clear to auscultation bilaterally Cardio: Rate: regular rate Rhythm: regular rhythm GI: Inspection: normal to inspection and non-distended GI Palp: No abdominal tenderness, Yes Soft to palpation, No Tenderness to palpation present (GI), No Guarding due to palpation present (GI) and No Rigid due to palpation Skin: General skin exam: normal color and no rashes or lesions noted Neuro: General: patient oriented x3 and CN's II-XI intact bilaterally Extrem: General: normal to inspection and full ROM Assessment and Plan Assessment and plan (1) Acute calculous cholecystitis: Code(s): K80.00 - Calculus of gallbladder with acute cholecystitis without obstruction Status: Acute Assessment and Plan: setup for robotic assisted cholecystectomy
--- NOTE | 2025-01-09 07:27 | WPDHPUPDATE1 ---
History and Physical Update Update Date/Time: 01/09/25 07:27 History and Physical has been reviewed, including an updated exam of the patient. There are NO changes in the patient's condition. Risks, benefits, and alternatives have been discussed and questions answered. Patient agrees to proceed with procedure.
[2025-01-09] MEDS: ceFAZolin 3 GM/D5W 100 ML 100 ML IVPB (07:35)
[2025-01-09] MEDS: BUPIVACAINE/EPINEPHRINE 0.5% 30 ML VIAL INFILTRATE (07:47)
--- NOTE | 2025-01-09 08:09 | S_PTH ---
PATIENT: Lauerano Eagle LOC: [facility] [place] U#:[id number] AGE/SX: 49/M ROOM: RE01/09/[address]: Indy Alvares MD : 1975 BED: DIS: 01/09/2025 SPEC #: [id number] RECD: 01/09/25 11:33 STATUS: CHRISTY REQ #: [id number] VANDA: 01/09/25 08:[address]: Indy Alvares DEPT: [facility] Surgical RECD BY: Roopa Mendes ENTERED: 01/09/25 11:34 SP TYPE: Surgical OTHR DR: Javier Lepe MD Tissues: A - Gallbladder Procedures: Hematoxylin and Eosin Stain Gross and Microscopic Level 3
--- NOTE | 2025-01-09 09:02 | W.PM.PROC2 ---
Procedure Note - Detailed Date of Procedure 01/09/25 Pre-op Diagnosis Acute Calculus Cholecystitis Post-op Diagnosis Same Procedure Performed Robotic assisted cholecystectomy Surgeon Indy Alvares MD Communications Advisor [place] Anesthesia General Indications 49-year-old male presenting to the office after emergency department visit for cholecystitis, cholelithiasis. Patient is now set up for cholecystectomy. Findings moderate cholecystitis, cholelithiasis Description of Procedure The patient was taken to the operating room and placed in the supine position. After adequate induction of general anesthesia, the patient was prepped and draped in the normal sterile fashion. A time-out was then done to verify the patient's identity, as well as the procedure being performed. I began by making a 8 mm incision in the periumbilical region. A Veress needle was then placed in the peritoneal cavity and CO2 gas was insufflated. After adequate pneumoperitoneum was achieved, the Veress needle was removed and a 8 mm Optiview trocar was placed under direct visualization. Once into the abdominal cavity, the introducer was removed and the laparoscope was placed through this trocar site. Under direct visualization, I placed a further 8 mm port in the left mid abdomen and 2x 8 mm ports in the right mid abdomen. The robot was then docked to these ports sites. I then went to the console. The gallbladder was then identified and noted to be moderately inflamed. I was able to place a grasper at the dome of the gallbladder and this was retracted up and over the liver. A 2nd retractor was used to grasp the infundibulum and retracted laterally. This allowed visualization and dissection of the triangle of Calot. There were some adhesions to the gallbladder and these were taken down with the cautery. I then began dissection around the triangle Calot. I first identified the cystic duct, I was able to visualize the entirety of the duct from its proximal insertion into the gallbladder to its distal junction with the common hepatic/common bile duct junction. I did use the firefly visualization at this point to confirm the anatomy. The proximal cystic duct was then further skeletonized, clipped, and transected. Next I visualized the cystic artery. Again the structure was skeletonized, clipped, and transected. I then again used firefly to confirm anatomy and no aberrant anatomy was noted. I then used the Bovie cautery to take down the peritoneal attachments of the gallbladder off the liver bed. Once the gallbladder specimen was completely detached, an Endo pouch was placed through the left 8 mm port site and the gallbladder specimen was placed in the endo-pouch and subsequently removed. I then re-examined the right upper quadrant. Hemostasis was noted in the liver bed and the clips were noted to be in good position on both the duct and the artery. No other pathology was seen in the right upper quadrant. All instruments were then removed and the robot was undocked. The abdomen was then desufflated and all ports were removed. All port sites were then closed with 4-0 Monocryl subcuticular suture. Dermabond was placed on each was wound. The patient tolerated the procedure well and was extubated in the operating room postop. The patient will now be transferred to the recovery room in stable condition. Estimated Blood Loss 5 Drains No Packing No Pathology Yes Complications No immediate complications Condition Stable Disposition PACU [facility] Billing Surgery - Charge Forward: Surgery Billing
[2025-01-09] MEDS: ONDANSETRON INJ 4 MG/2 ML VIAL IV PUSH (09:27)
[2025-01-09] MEDS: fentaNYL CITRATE INJ (*CRX) 100 MCG/2 ML VIAL 25 MCG IV PUSH ×2 (09:41→09:49)
[2025-01-09] MEDS: oxyCODONE HCL (*CRX) 5 MG TAB IR PO (10:27)
== END 2025-01-09 11:22 | disposition home or self-care (01) ==
PROVIDERS: PCP Family Medicine; Visit Provider Surgery
PROC: 0FT44ZZ Resection of Gallbladder, Percutaneous Endoscopic Approach (ICD-10-PCS; CPT 47562; principal; 2025-01-09 07:30)
DX: K80.10 Calculus of gallbladder with chronic cholecystitis without obstruction (principal)
CPT/HCPCS: 47562; S2900; 88304; A9270; J0690; J1100; J1171; J1885; J2003; J2250; J2405; J2704; J3010; J7030; J7120